=== PATIENT | male | born 1935 | race Caucasian/White ===

== ENCOUNTER 2017-06-19 20:04 | Inpatient (IN) | payer MEDICARE, BC ==
[2017-06-19] MEDS ORDERED: Diphth/Teta/Acell Pertusis* 0.5 ML VIAL ** FOR 6 WKS TO 7 YRS OLD IM ONE (20:46)
[2017-06-19] MEDS ORDERED: levETIRAcetam IV* 1,000 MG in NS 0.9% 100 ML* 100 ML IVPB ONE (21:00)
--- NOTE | 2017-06-19 21:02 | RAD ---
Indication: Syncope; fell and hit floor. Anticoagulated. Comparison: No relevant prior exams available on the [facility] PACS for comparison. Technique: Noncontrast CT vertex of skull through foramen magnum. Report: Small volume of acute hyperdense subarachnoid hemorrhage at the LEFT frontal lobe. Negative for additional extra or intra-axial hemorrhage. Negative for mass effect. Moderate prominence of the cerebral sulci and proportional enlargement of the ventricles. Patent basal cisterns. Decreased density in the periventricular and subcortical white matter while non-specific is most likely due to chronic microangiopathy. Negative for hernández matter white matter obscuration. No suspicious abnormality of the orbital contents. Negative for calvarial or skull base fracture. Clear visualized paranasal sinuses and mastoid air spaces. Infiltrative LEFT frontal scalp hematoma. IMPRESSION: 1. Small volume of acute hyperdense subarachnoid hemorrhage at the LEFT frontal lobe. Negative for mass effect. No fracture evident. 2. Moderate involutional change and stigmata of chronic small vessel ischemic disease. Results discussed with Dr. Watkins 06/19/2017 8:58 PM EST
--- NOTE | 2017-06-19 21:06 | RAD ---
INDICATION: Syncopal episode with head injury. LEFT frontal subarachnoid hemorrhage. Anticoagulated. COMPARISON: CT brain of the same date. TECHNIQUE: Multidetector CT images foramen magnum to lung apices without contrast. Multiplanar reformation. REPORT: Images through the upper lung zones are remarkable for large bilateral dependent pleural effusions with proportional atelectasis. Negative for pneumothorax within the [id number]. Thickened interlobular septa consistent with interstitial edema. Normal vertebral alignment accounting for exam positioning without spondylolisthesis or subluxation at any level. Negative for cervical vertebral body or posterior element fracture. Negative for paravertebral hematoma. 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 At C2-C3 uncinate process spurring and facet joint osteoarthritis results in mild RIGHT foraminal stenosis. At C3-C4 dorsal spondylitic ridging results in mild acquired central canal stenosis and uncinate process spurring and facet joint osteoarthritis results in mild RIGHT foraminal stenosis. At C5-C6 uncinate process spurring and facet joint osteoarthritis results in mild bilateral foraminal stenosis. IMPRESSION: 1. No CT evidence for traumatic cervical spine injury. 2. Incidental large bilateral pleural effusions. Results discussed Dr. Watkins 06/19/2017 9:03 PM EST
[2017-06-19] MEDS ORDERED: Tetan/Diph/Pertus SYR(Tdap)* 0.5 ML SYR(BOOSTRIX) use SYR IM ONE ×2 (21:09→21:10)
[2017-06-19 21:30] LABS: ABS Basophils 0 10^3/ul (0-0.2); ABS Eosinophils 0 10^3/ul (0-0.6); ABS Monocytes 0.4 10^3/ul (0-0.8); ABS Neutrophils 3.2 10^3/ul (1.5-7.7); ABS Nucleated RBC 0 10^3/ul; Eosinophil % 0.6 % (0-6); Hematocrit 35 % (42-52); Hemoglobin 11.9 g/dl (14.0-18.0); Lymphocyte % 21.5 % (25-47); Mean Corpuscular HGB Conc 34 g/dl (31-36); Mean Corpuscular Hemoglobin 34 pg (27-31); Mean Corpuscular Volume 99 fL (80-94); Mean Platelet Volume 8 um3 (7.4-10.4); Nucleated Red Blood Cells % 0.1; Platelet Count 191 10^3/ul (150-450); Red Blood Count 3.53 10^6/ul (4.0-5.4); Red Cell Distribution Width 17 % (10.5-15); White Blood Count 4.7 10^3/ul (3.5-10.8)
[2017-06-19 21:45] LABS: EGFR Non-African American 34.3 (>60)
[2017-06-19 21:58] LABS: INR 4.95 (0.77-1.02)
[2017-06-19] MEDS ORDERED: Lidocaine 2% PF * 5 ML VIAL ONE (22:17)
[2017-06-19] MEDS ORDERED: Levofloxacin 750 MG IVPREMIX(* 750 MG/150 ML BAG IVPB ONE (23:19)
[2017-06-19] MEDS ORDERED: CMCS: Melatonin (NF) 3 MG TAB PO PRN (23:36)
[2017-06-19] MEDS ORDERED: Ondansetron INJ* 2 MG/ML VIAL IV PRN (23:36)
[2017-06-19] MEDS ORDERED: Acetaminophen TAB* 325 MG PO PRN (23:36)
[2017-06-19] MEDS ORDERED: NS 0.9% 1000 ML* 1,000 ML IV SCH (23:45)
--- NOTE | 2017-06-19 23:53 | HP ---
H&P (Free Text) History and Physical: PCP: STACY Blank Date/Time: 06/19/2017 2320 CC: syncope HPI: Mr Ruelas is an 81YO male HX AFIB on rivaroxaban who was at home this evening in the kitchen with his . She was not facing him and heard a 'clunk ' finding him unresponsive on the floor for which she called EMS. She relates he was entirely unresponsive for 10-15 minutes only beginning to come around upon EMS arrival. Mr Ruelas who is sharp at baseline has no recollection of the evenings events. He denies current pain, chest pain, palpitations, N/V, sweating , light-headedness, SOB, or other issues. When asked how he feels replies, "feeling fine". He denies headache and states "someone put this on my head [ motions to head dressing] but I don't know why". ED evaluation reveals a small L frontal SAH. He was given 3000 units K-Centra & loaded with 1g levetiracetam for seizure prophylaxis in ED as well as having a scalp laceration sutured & dressed. Jennifer Carlin MD neurosurgery was consulted by Carlos Watkins MD ED and agreed to evaluate in AM. PMedHx AFIB on rivaroxaban syncope after which he had a pacer placed ~4 years ago HTN HLD Medications Patient/ uncertain as to meds/dosages, will need reconciling via PCP/Rx in AM. 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; full code status FamHx: Mother: passed in her 90s of CAD; Father: passed in his 70s of CAD ROS: as above, otherwise reviewed and all were negative vitals: Vital Signs Temp 36.9 C 06/20/17 00:13 Pulse 61 06/20/17 00:13 Resp 16 06/20/17 00:13 BP 131/58 06/20/17 00:13 Pulse Ox 97 06/20/17 00:13 Intake & Output 06/19/17 06/19/17 06/20/17 11:59 23:59 11:59 Intake Total 110 Balance 110 Weight 61.689 kg Intake: IV Fluids 110 Constitutional: NAD, normally developed, well-nourished elderly white male HEENM: atraumatic; sclera/conjunctiva: anicteric/clear; hearing: clinically mildly decreased; oropharynx: clear, mucosa dry Neck: soft tissue: non-tender; thyroid: normal Pulmonary: clear to auscultation bilaterally, good aeration, no accessory muscle use CV: RR/RR, normal S1S2, no carotid bruit, no jugular venous distention, 2+ B DP/ PT, trace BLE edema Abdominal: soft, non-distended, non-tender, no rebound/guarding/rigidity, normoactive bowel sounds, no hepatosplenomegaly or masses, no costovertebral angle tenderness Musculoskeletal: general: grossly intact, no tenderness with palpation, negative Jackelyn's Integumental: head dressing clean & dry Psychiatric orientation: affect: mood: eye contact: content: memory: responses: insight: Testing: Lab Results 06/19/17 06/19/17 06/19/17 Range/Units 21:17 21:17 21:17 WBC 4.7 (3.5-10.8) 10^3/ul RBC 3.53 L (4.0-5.4) 10^6/ul Hgb 11.9 L (14.0-18.0) g/dl Hct 35 L (42-52) % MCV 99 H (80-94) fL MCH 34 H (27-31) pg MCHC 34 (31-36) g/dl RDW 17 H (10.5-15) % Plt Count 191 (150-450) 10^3/ul MPV 8 (7.4-10.4) um3 Neut % (Auto) 68.6 (38-83) % Lymph % (Auto) 21.5 L (25-47) % [place] % (Auto) 8.6 (1-9) % Eos % (Auto) 0.6 (0-6) % Baso % (Auto) 0.7 (0-2) % Absolute Neuts (auto) 3.2 (1.5-7.7) 10^3/ul Absolute Lymphs (auto) 1.0 (1.0-4.8) 10^3/ul Absolute Monos (auto) 0.4 (0-0.8) 10^3/ul Absolute Eos (auto) 0 (0-0.6) 10^3/ul Absolute Basos (auto) 0 (0-0.2) 10^3/ul Absolute Nucleated RBC 0 10^3/ul Nucleated RBC % 0.1 INR (Anticoag Therapy) 4.95 H (0.77-1.02) APTT 44.5 H (26.0-36.3) seconds Sodium 126 L (133-145) mmol/L Potassium 5.1 H (3.5-5.0) mmol/L Chloride 91 L (101-111) mmol/L Carbon Dioxide 27 (22-32) mmol/L Anion Gap 8 (2-11) mmol/L BUN 44 H (6-24) mg/dL Creatinine 1.89 H (0.67-1.17) mg/dL Est GFR ( Amer) 44.1 (>60) Est GFR (Non-Af Amer) 34.3 (>60) BUN/Creatinine Ratio 23.3 H (8-20) Glucose 106 H (70-100) mg/dL Calcium 9.6 (8.6-10.3) mg/dL Magnesium 2.1 (1.9-2.7) mg/dL Total Bilirubin 1.60 H (0.2-1.0) mg/dL AST 31 (13-39) U/L ALT 14 (7-52) U/L Alkaline Phosphatase 89 (34-104) U/L Troponin I 0.03 (<0.04) ng/mL Total Protein 7.0 (6.4-8.9) g/dL Albumin 3.8 (3.2-5.2) g/dL Globulin 3.2 (2-4) g/dL Albumin/Globulin Ratio 1.2 (1-3) TSH 3.21 (0.34-5.60) mcIU/mL ECG, personally reviewed: ventricularly paced AFLUT rate 68 CXR, personally reviewed: central pulmonary vascular congestion CT brain WO, personally reviewed: IMPRESSION: 1. Small volume of acute hyperdense subarachnoid hemorrhage at the LEFT frontal lobe. Negative for mass effect. No fracture evident. 2. Moderate involutional change and stigmata of chronic small vessel ischemic disease. CT C-spine WO, personally reviewed: IMPRESSION: 1. No CT evidence for traumatic cervical spine injury. 2. Incidental large bilateral pleural effusions. Impression: 81M HX DIAGNOSIS & PLAN Primary traumatic SAH on rivaroxaban for AFIB : given 3000 units K-Centra in ED : given 1g levetiracetam in ED : Jennifer Carlin MD neurosurgery consulted by ED, will evaluate in AM : supplemental oxygen : Q1H neurochecks x4 then Q2H : PT/OT evaluations : bedside swallowing evaluation : supportive care syncope : check d-dimer although, if PE would not be able to anticoagulate, though may consider IVC filter in AM : telemetry : arrange pacer interrogation : check ECHO in AM scalp laceration : sutured & dressed in ED Secondary AFIB : hold rivaroxaban : review rate control medications once reconciled HTN : review meds once reconciled HLD : review meds once reconciled Admission Rational: inpatient for tramatic SAH in critical patient requiring ICU monitoring; inappropriate for outpatient setting DVTp: SCDs, no anti-coagulation given SAH Code Status: full HCP:
--- NOTE | 2017-06-20 00:49 | ED ---
Griffin Ko Gabriel, scribed for Carlos Watkins MD on 06/19/17 at 2040 . Adult Trauma - HPI Summary HPI Summary: This patient is a 81 year old M [facility] accompanied by his s/p fall that occurred [employer] PERSON. His states patient had an unwitnessed fall with a LOC that lasted for several minutes. His baseline is alert and oriented and he is able to drive, states he is not at baseline currently. He takes his blood thinner around 0830 every day and had a pacer. - History of Current Complaint Chief Complaint: EDSyncope Stated Complaint: FALL/HEAD INJURY Time Seen by Provider: 06/19/17 20:28 Hx Obtained From: Patient, Family/Real Estate Intern Mechanism of Injury: Fall Loss of Consciousness: prolonged (minutes) Onset/Duration: Traumatic, Still Present - still confused, Resolved Onset Severity: Severe Current Severity: Mild Pain Intensity: 0 Pain Scale Used: 0-10 Numeric Location: Head Associated Signs & Symptoms: Positive: Other: - LOC, syncope, and multiple lacerations - Allergy/Home Medications Allergies/Adverse Reactions: Allergies Allergy/AdvReac Type Severity Reaction Status Date / Time Penicillins Allergy Rash Verified 06/19/17 21:00 PMH/Surg Hx/FS Hx/Imm Hx Endocrine/Hematology History: Reports: Hx Anticoagulant Therapy Cardiovascular History: Reports: Hx Atrial Fibrillation, Hx Pacemaker/ICD - Surgical History Surgery Procedure, Year, and Place: pacemaker Infectious Disease History: No Infectious Disease History: Denies: Traveled Outside the [place] in Last 30 Days - Family History Known Family History: Negative: Seizure Disorder - Social History Lives: With Family Alcohol Use: None Substance Use Type: Reports: None Smoking Status (MU): Never Smoked Tobacco Review of Systems Positive: Other - head trauma Positive: Other - laceration on forehead and arm Neurological: Other - LOC/ syncope All Other Systems Reviewed And Are Negative: Yes Physical Exam - Summary Physical Exam Summary: VITAL SIGNS: Reviewed. GENERAL: Patient is a well-developed and nourished male who is lying comfortable in the stretcher. Patient is not in any acute respiratory distress. HEAD AND FACE: there is a 1inch laceration on the left anterior forehead with minimal bleeding EYES: PERRLA, EOMI x 2, No injected conjunctiva, no nystagmus. EARS: Hearing grossly intact. Ear canals and tympanic membranes are within normal limits. MOUTH: Oropharynx within normal limits. NECK: Supple, trachea is midline, no adenopathy, no JVD, no carotid bruit, no c- spine tenderness, neck with full ROM. CHEST: Symmetric, no tenderness at palpation LUNGS: Clear to auscultation bilaterally. No wheezing or crackles. CVS: Regular rate and rhythm, S1 and S2 present, no murmurs or gallops appreciated. ABDOMEN: Soft, non-tender. No signs of distention. No rebound no guarding, and no masses palpated. Bowel sounds are normal. EXTREMITIES: FROM in all major joints, no edema, no cyanosis or clubbing. NEURO: Alert and oriented x 3. No acute neurological deficits. Speech is normal and follows commands. SKIN: Dry and warm Patient was put in a C-collar immediately after the exam Triage Information Reviewed: Yes Vital Signs On Initial Exam: Initial Vitals Temp Pulse Resp BP Pulse Ox 97.8 F 70 16 143/49 97 06/19/17 20:23 06/19/17 20:23 06/19/17 20:23 06/19/17 20:23 06/19/17 20:23 Vital Signs Reviewed: Yes - [place] Coma Scale Coma Scale Total: 15 Procedures - Laceration/Wound Repair 1 Location: head Description: Irregular Anesthesia: 2.0%, [place] Length, Depth and Shape: 1 inch Betadine Prep?: Yes Irrigated w/ Saline (ccs): 100 Laceration/Wound Explored: no foreign body removed Suture Type: Nylon Number of Sutures: 4 Layer Closure?: No Sterile Dressing Applied?: Yes Diagnostics - Vital Signs Vital Signs Temp Pulse Resp BP Pulse Ox 06/19/17 20:23 97.8 F 70 16 143/49 97 - Laboratory Result Diagrams: 06/19/17 21:17 06/19/17 21:17 Lab Statement: Any lab studies that have been ordered have been reviewed, and results considered in the medical decision making process. - Radiology CXR Radiology Interpretation Completed By: ED Physician - bilateral lower lobe infiltrates. - CT CT Brain CT Interpretation Completed By: Radiologist - 1. Small volume of acute hyperdense subarachnoid hemorrhage at the LEFT frontal lobe. Negative for mass effect. No fracture evident. 2. Moderate involutional change and stigmata of chronic small vessel ischemic disease. ED physician has reviewed this radiology report. CT C-spine CT Interpretation Completed By: Radiologist - 1. No CT evidence for traumatic cervical spine injury. 2. Incidental large bilateral pleural effusions. ED physician has reviewed this radiology report. - EKG 21:04 Cardiac Rate: Other Rate EKG Rhythm: Atrial Fibrillation - at 68 BPM EKG Interpretation: afib underlying paced rhythm Adult Trauma Course/Dx - Course Assessment/Plan: This patient is a 81 year old M BIB[facility] to [facility] accompanied by his s/p fall that occurred [employer] PERSON. His states patient had an unwitnessed fall with a LOC that lasted for several minutes. Pacer. His baseline is alert and oriented and he is able to drive, states he is not at baseline currently. He takes his blood thinner around [address] brain reveals, per radiologist, 1. Small volume of acute hyperdense subarachnoid hemorrhage at the LEFT frontal lobe. Negative for mass effect. No fracture evident. 2. Moderate involutional change and stigmata of chronic small vessel ischemic disease. CT C-spine reveals, per radiologist, 1. No CT evidence for traumatic cervical spine injury. 2. Incidental large bilateral pleural effusions. CXR reveals bilateral lower lobe infiltrates. An EKG reveals afib underlying paced rhythm 68 bpm. Patient will be admitted to ICU and follow up with the hospitalist. The patient is agreeable with this plan. - Diagnoses Provider Diagnoses: PNA (pneumonia), Syncope, Subarachnoid hemorrhage - Physician Notifications Discussed Care Of Patient With: Dominic Carlin Time Discussed With Above Provider: 21:00 Instructed by Provider To: Other - DR. Oviedo suggests the patient be admitted to ICU. - Critical Care Time Critical Care Time: 30-74 min Discharge - Discharge Plan Condition: Fair Disposition: ADMITTED TO [facility] Consult Consult: 2144 We discussed patient care with and he has agreed to admit the patient. The documentation as recorded by the Griffin elmore Gabriel accurately reflects the service I personally performed and the decisions made by , Carlos Watkins MD.
[2017-06-20] MEDS: NS 0.9% 1000 ML* 1,000 ML IV SCH ×2 (01:35→10:44)
[2017-06-20 01:52] LABS: Urine Appearance Clear; Urine Blood Negative (Negative); Urine Color Amber; Urine Ketones Negative (Negative); Urine Protein Negative (Negative); Urine Specific Gravity 1.015 (1.010-1.030); Urine Urobilinogen Negative (Negative)
[2017-06-20 06:23] LABS: Hematocrit 27 % (42-52); Hemoglobin 9.5 g/dl (14.0-18.0); Mean Corpuscular HGB Conc 35 g/dl (31-36); Mean Corpuscular Hemoglobin 35 pg (27-31); Mean Corpuscular Volume 99 fL (80-94); Mean Platelet Volume 8 um3 (7.4-10.4); Platelet Count 145 10^3/ul (150-450); Red Blood Count 2.74 10^6/ul (4.0-5.4); Red Cell Distribution Width 17 % (10.5-15); White Blood Count 4.1 10^3/ul (3.5-10.8)
[2017-06-20 06:51] LABS: EGFR Non-African American 47.7 (>60)
--- NOTE | 2017-06-20 07:19 | RAD ---
INDICATION: Syncope. COMPARISON: There are no prior studies available for comparison. TECHNIQUE: A portable view of the chest was obtained. FINDINGS: The heart is moderately enlarged. There is a multilead transvenous pacemaker present. There is diffuse prominence of the interstitial markings and small bilateral pleural effusions most consistent with congestive heart failure. IMPRESSION: FINDINGS MOST CONSISTENT WITH CONGESTIVE HEART FAILURE.
--- NOTE | 2017-06-20 08:36 | CONSULT ---
Consult Consult: Neurosurgery Consult Date of Admission: 06/19/17 Date of Consult: 06/20/17 Reason for Consult: Traumatic subarachnoid hemorrhage Referring Provider: Dr. Watkins HPI: This is an 81 year old male with past medical history significant for atrial fibrillation, syncope, pacemaker placement, HTN and HLD who presented to the [facility] [place] after a fall. Patient takes Xarelto. The patient does not recall the fall or how he was feeling prior to falling. Per previous reports, the fall was unwitnessed and the patient's reports several minutes of unconsciousness after the fall. Currently, the patient denies headache, blurred vision, dizziness, lightheadedness, chest pain, neck pain, difficulty breathing, shortness of breath, abdominal pain, nausea, pain in the lower extremities. He has a history of pacemaker placement approximately 4 years ago which he reports was at [facility] although he is unable to recall the evp's name. Past Medical History: 1. Atrial fibrillation, on Xarelto 2. Syncope 3. HTN 4. HLD Past Surgical History: 1. Pacemaker placement, [facility] 2. Bilateral cataract extractions 3. Right great toe surgery Home Medications: 1. Aspirin Adult Low Dose 81 mg PO 06/20/17 [History] 2. Atorvastatin Calcium-Coenzyme 40 mg PO DAILY 06/20/17 [History Confirmed 10/02] 3. D3 2000 2,000 mg PO 06/20/17 [History] 4. Lisinopril 20 mg PO DAILY 06/20/17 [History Confirmed 06/20/17] 5. Magnesium Oxide 800 mg PO 06/20/17 [History] 6. Metoprolol Succinate 25 mg PO DAILY 06/20/17 [History Confirmed 06/20/17] 7. Ranexa 500 mg PO BID 06/20/17 [History Confirmed 06/20/17] 8. Vitamin B Complex PO 06/20/17 [History] 9. Xarelto 20 mg 20 mg PO QAM 06/20/17 [History Confirmed 06/20/17] Allergies: 1. Penicillins Social History: This patient is a nonsmoker and consumes 1-2 drinks daily. He lives at home in [place] with his . Physical Exam: Vital Signs: Temp Pulse Resp BP Pulse Ox 97.5 F 63 17 145/48 98 06/20/17 08:00 06/20/17 08:01 06/20/17 08:01 06/20/17 08:00 06/20/17 08:01 General: Thin, elderly male who is alert and laying comfortably in bed. No distress. HEENT: Head with dressing intact, wound to left frontal head. PERRL, EOMI, sclerae anicteric. Gross hearing intact but slightly decreased. Dry mucus membranes. Neck: Neck is supple and symmetric without obvious deformity. Neck is nontender to palpation anteriorly and posteriorly. CV: Radial pulses 2+. Pedal pulses difficult to palpate. Lungs: Breathing is nonlabored and lungs are clear. Abdomen: Abdomen is flat. Nontender, nondistended. Normoactive bowel sounds. Neuro: Alert and oriented to person, 2019, [facility] and birthdate. CN II- XII intact. Tongue protrudes midline and smile symmetric. Speech is slightly slurred although unable to determine baseline. Answers questions appropriately although unable to provide detailed responses. Motor normal in upper and lower extremities. Sensation intact. Finger to nose coordination intact but slow. No pronator drift. Extremities: Full ROM. Imagin. CT brain on 06/19/17 shows small left frontal lobe subarachnoid hemorrhage. Assessment: Stable, neurologically intact. Plan: 1. Repeat CT brain this morning. 2. Continue neuro checks.
--- NOTE | 2017-06-20 08:46 | PN ---
Subjective Date of Service: 06/20/17 Interval History: In AM thinks he was in [facility] but otherwise oriented to person and situation. thought 1917. following commands, MASSEY, no neuro deficits. CT head with stable SDH, new small intraparenchymal. PT/PTT still elevatated and discussed with Dr. Carlin by phone. Ordered additional kcentra but pharmacy says not indicated for a redose. Vit K given. On re-eval around 645 pt though he was home, again no neuro deficits. Objective Active Medications: Acetaminophen (Tylenol Tab*) 650 mg PO Q6H PRN PRN Reason: FEVER/PAIN Docusate Sodium (Colace Cap*) 200 mg PO BID [facility] Sodium Chloride (Ns 0.9% 1000 Ml*) 1,000 mls @ 100 mls/hr IV PER RATE [facility] Last Admin: 06/20/17 01:35 Dose: 100 mls/hr Melatonin (Melatonin (Nf)) 3 mg PO BEDTIME PRN; Protocol PRN Reason: Sleep Omeprazole (Prilosec Cap*) 20 mg PO DAILY@0600 [facility] Ondansetron HCl (Zofran Inj*) 4 mg IV Q6H PRN PRN Reason: NAUSEA Vital Signs - 8 hr 06/20/17 06/20/17 06/20/17 00:54 01:03 01:11 Temperature 98.5 F Pulse Rate 64 65 60 Respiratory 11 10 15 Rate Blood Pressure 132/58 132/58 (mmHg) O2 Sat by Pulse 96 91 94 Oximetry 06/20/17 06/20/17 06/20/17 01:16 01:30 01:45 Temperature Pulse Rate 60 65 63 Respiratory 15 13 14 Rate Blood Pressure 134/60 127/64 133/64 (mmHg) O2 Sat by Pulse 94 96 94 Oximetry 06/20/17 06/20/17 06/20/17 02:00 02:01 02:15 Temperature Pulse Rate 65 62 63 Respiratory 11 12 11 Rate Blood Pressure 138/60 145/55 (mmHg) O2 Sat by Pulse 90 89 100 Oximetry 06/20/17 06/20/17 06/20/17 02:31 02:46 03:00 Temperature Pulse Rate 65 63 67 Respiratory 13 15 13 Rate Blood Pressure 141/50 132/61 130/53 (mmHg) O2 Sat by Pulse 100 100 Oximetry 06/20/17 06/20/17 06/20/17 03:01 03:16 03:30 Temperature Pulse Rate 62 64 64 Respiratory 13 16 28 Rate Blood Pressure 107/82 119/65 (mmHg) O2 Sat by Pulse 95 100 100 Oximetry 06/20/17 06/20/17 06/20/17 03:33 03:45 04:00 Temperature 98.9 F Pulse Rate 66 64 Respiratory 14 13 Rate Blood Pressure 143/62 136/61 (mmHg) O2 Sat by Pulse 100 100 Oximetry 06/20/17 06/20/17 06/20/17 04:15 04:31 04:45 Temperature Pulse Rate 68 70 67 Respiratory 13 13 16 Rate Blood Pressure 145/68 131/65 136/65 (mmHg) O2 Sat by Pulse 95 96 97 Oximetry 06/20/17 06/20/17 06/20/17 05:00 05:01 05:15 Temperature Pulse Rate 64 63 66 Respiratory 13 20 30 Rate Blood Pressure 131/47 149/66 (mmHg) O2 Sat by Pulse 95 93 99 Oximetry 06/20/17 06/20/17 06/20/17 05:32 05:45 06:00 Temperature Pulse Rate 61 65 Respiratory 17 20 25 Rate Blood Pressure 122/50 132/57 136/59 (mmHg) O2 Sat by Pulse 97 100 Oximetry 06/20/17 06/20/17 06/20/17 06:01 06:08 06:15 Temperature Pulse Rate 64 62 Respiratory 25 20 19 Rate Blood Pressure 134/56 (mmHg) O2 Sat by Pulse 100 100 Oximetry 06/20/17 06/20/17 06/20/17 06:30 06:45 07:00 Temperature Pulse Rate 65 63 63 Respiratory 32 23 14 Rate Blood Pressure 143/54 147/54 143/51 (mmHg) O2 Sat by Pulse 100 100 99 Oximetry 06/20/17 06/20/17 06/20/17 07:01 07:15 07:30 Temperature Pulse Rate 66 74 71 Respiratory 27 18 15 Rate Blood Pressure 146/60 148/58 (mmHg) O2 Sat by Pulse 100 95 100 Oximetry 06/20/17 06/20/17 06/20/17 07:45 08:00 08:01 Temperature 97.5 F Pulse Rate 61 66 63 Respiratory 17 15 17 Rate Blood Pressure 156/59 145/48 (mmHg) O2 Sat by Pulse 100 96 98 Oximetry Oxygen Devices in Use Now: None Appearance: NAD, pleasant. bleeding through head lac dressings every couple hours. Ears/Nose/Mouth/Throat: NL Teeth, Lips, Gums, Mucous Membranes Moist Neck: NL Appearance and Movements; NL JVP, Trachea Midline Respiratory: Symmetrical Chest Expansion and Respiratory Effort, Clear to Auscultation Cardiovascular: NL Sounds; No Murmurs; No JVD, RRR Abdominal: NL Sounds; No Tenderness; No Distention, No Hepatosplenomegaly Extremities: No Edema, No Clubbing, Cyanosis Skin: No Rash or Ulcers, No Nodules or Sclerosis Neurological: - - MASSEY, strength 5/5, CN II-XII intact. Oriented to name but often confused about place. Result Diagrams: 06/20/17 06:00 06/20/17 06:00 Additional Lab and Data: Laboratory Tests 06/19/17 06/19/17 06/19/17 21:17 21:17 21:17 WBC 4.7 RBC 3.53 L Hgb 11.9 L Hct 35 L MCV 99 H MCH 34 H MCHC 34 RDW 17 H Plt Count 191 MPV 8 Neut % (Auto) 68.6 Lymph % (Auto) 21.5 L Swisher % (Auto) 8.6 Eos % (Auto) 0.6 Baso % (Auto) 0.7 Absolute Neuts (auto) 3.2 Absolute Lymphs (auto) 1.0 Absolute Monos (auto) 0.4 Absolute Eos (auto) 0 Absolute Basos (auto) 0 Absolute Nucleated RBC 0 Nucleated RBC % 0.1 INR (Anticoag Therapy) 4.95 H APTT 44.5 H D-Dimer, Quantitative 881 H Sodium 126 L Potassium 5.1 H Chloride 91 L Carbon Dioxide 27 Anion Gap 8 BUN 44 H Creatinine 1.89 H Est GFR ( Amer) 44.1 Est GFR (Non-Af Amer) 34.3 BUN/Creatinine Ratio 23.3 H Glucose 106 H Calcium 9.6 Magnesium 2.1 Total Bilirubin 1.60 H AST 31 ALT 14 Alkaline Phosphatase 89 Troponin I 0.03 Total Protein 7.0 Albumin 3.8 Globulin 3.2 Albumin/Globulin Ratio 1.2 TSH 3.21 Urine Color Urine Appearance Urine pH Ur Specific Hilliard Urine Protein Urine Ketones Urine Blood Urine Nitrate Urine Bilirubin Urine Urobilinogen Ur Leukocyte Esterase Urine Glucose 06/20/17 06/20/1718 01:05 01:40 06:00 WBC RBC Hgb Hct MCV MCH MCHC RDW Plt Count MPV Neut % (Auto) Lymph % (Auto) Swisher % (Auto) Eos % (Auto) Baso % (Auto) Absolute Neuts (auto) Absolute Lymphs (auto) Absolute Monos (auto) Absolute Eos (auto) Absolute Basos (auto) Absolute Nucleated RBC Nucleated RBC % INR (Anticoag Therapy) APTT D-Dimer, Quantitative Sodium 129 L Potassium 3.8 Chloride 100 L Carbon Dioxide 21 L Anion Gap 8 BUN 37 H Creatinine 1.42 H Est GFR ( Amer) 61.4 Est GFR (Non-Af Amer) 47.7 BUN/Creatinine Ratio 26.1 H Glucose 77 Calcium 7.5 L Magnesium Total Bilirubin AST ALT Alkaline Phosphatase Troponin I 0.03 0.03 Total Protein Albumin Globulin Albumin/Globulin Ratio TSH Urine Color Meagan Urine Appearance Clear Urine pH 6.0 Ur Specific Hilliard 1.015 Urine Protein Negative Urine Ketones Negative Urine Blood Negative Urine Nitrate Negative Urine Bilirubin Negative Urine Urobilinogen Negative Ur Leukocyte Esterase Negative Urine Glucose Negative 06/20/17 06/20/17 06:00 15:00 WBC 4.1 RBC 2.74 L Hgb 9.5 L Hct 27 L MCV 99 H MCH 35 H MCHC 35 RDW 17 H Plt Count 145 L MPV 8 Neut % (Auto) Lymph % (Auto) Swisher % (Auto) Eos % (Auto) Baso % (Auto) Absolute Neuts (auto) Absolute Lymphs (auto) Absolute Monos (auto) Absolute Eos (auto) Absolute Basos (auto) Absolute Nucleated RBC Nucleated RBC % INR (Anticoag Therapy) 2.87 H APTT 40.4 H D-Dimer, Quantitative Sodium Potassium Chloride Carbon Dioxide Anion Gap BUN Creatinine Est GFR ( Amer) Est GFR (Non-Af Amer) BUN/Creatinine Ratio Glucose Calcium Magnesium Total Bilirubin AST ALT Alkaline Phosphatase Troponin I Total Protein Albumin Globulin Albumin/Globulin Ratio TSH Urine Color Urine Appearance Urine pH Ur Specific Hilliard Urine Protein Urine Ketones Urine Blood Urine Nitrate Urine Bilirubin Urine Urobilinogen Ur Leukocyte Esterase Urine Glucose Microbiology and Other Data: Microbiology 06/20/17 01:03 Nasal Screen MRSA (PCR)(EMILY) - Final Nasal Mrsa Negative Assess/Plan/Problems-Billing Assessment: 81 year old male PMH HTN, HLD, Afib on Xarelto, recent decline (lost 10lbs and reduced ability to do ADLs) p.w with syncope. CTH with small subdural. s/p kaycentra (initial INR 4.95). No neuro deficits but some disorientation. Repeat CTH with small intraparenchymal bleed. #SDH, intraparenchymal hemorrhage - s/p kcentra. Per pharmacy, packet insert does not recommend redosing. - continue neuro checks q2 in ICU - f/u neurosurgery recs - will give vitamin K to help with other clotting factors - hold xarelto or other anticoagulants - continue keppra ppx. #Syncope in setting of recent declining deconditioning - - troponins flat at 0.03, 0.03, 0.03. ECHO with EF 30-35%, septal wall motion abnormalities. e/o of severe pHTN Try to obtain prior records and if new deficit get cardiology consult. - duplex doppler w/o e/o DVT. DDimer was elevated. Would not be able to anticoagulate if did have a PE though not hypoxic - continue telemetry - try to interogate pacer. - likely hx of CAD/angina as is on ranexa as home med and CHF as is on lasix 20mg daily. hold for now. #HTN - home lisinopril and metoprolol were not given on admission and patient currently normotensive, will add back metoprolol today #HLD - add atorvastatin 40mg back. CODE: Full Status and Disposition: medicine inpatient, in ICU Attending: Rafiq Parnell
--- NOTE | 2017-06-20 09:05 | RAD ---
INDICATION: Syncope, elevated d-dimer. COMPARISON: There are no prior studies available for comparison. TECHNIQUE: Multiple real-time, color flow and Doppler tracings of both lower extremities were obtained. FINDINGS: The common femoral, femoral, profunda femoral and popliteal veins all demonstrate normal compressibility, augmentation with compression and phasic response with respiration. The posterior tibial and peroneal veins demonstrate normal compressibility and augmentation with compression. There is a small cyst in the left popliteal fossa measuring 2.5 x 0.8 x 1.2 cm. IMPRESSION: 1. NO EVIDENCE FOR DEEP VENOUS THROMBOSIS. 2. LEFT POPLITEAL FOSSA CYST.
[2017-06-20] MEDS: Docusate CAP* 100 MG PO SCH ×2 (10:40→22:35)
[2017-06-20] MEDS: Omeprazole CAP* 20 MG PO SCH (10:40)
--- NOTE | 2017-06-20 10:50 | ECHO ---
Patient: KAMRAN DOUGHERTY [facility] Rec#: [id number] : 1935 Date: 06/20/2017 Age: 81y Height: 167.64 cm / 66.0 in Weight: 61.69 kg / 136.0 lbs Sex: M BSA: 1.7 Room#: [facility] Admit Date#: 06/19/2017 Type: Inpatient Referring: Young Hendricks MD Reading: Koby Hector MD Double Reamer Operator: Lilliam Stephenson RDCS CC: STACY Giordano Transthoracic Echocardiogram Indication: Syncope BP: 136/59 HR: 65 Rhythm: Paced Findings History: A-fib, s/p pacer, HTN, HLD. Technical Comments: The study quality is fair. The study is technically limited due to poor acoustic windows. Completed at 0940. Left Ventricle: The left ventricular chamber size is normal. There is no left ventricular hypertrophy. There is a focal wall motion abnormality present.Severe upper septal hypokinesis to akinesis is seen.Moderate global hypokinesis elsewhere. There is moderately decreased left ventricular systolic function. The estimated ejection fraction is 35-40%. There is abnormal ventricular septal wall motion consistent with right ventricular pacemaker. There is no consistent Doppler evidence of clinically significant diastolic dysfunction. Left Atrium: The left atrium is moderately dilated. Right Ventricle: Moderator Band present. The right ventricular cavity size is normal. The right ventricular global systolic function is low normal. A pacemaker wire is visualized in the right ventricle. Right Atrium: The right atrium is moderately dilated. A pacemaker wire is visualized in the right atrium. Aortic Valve: The aortic valve structure is not well visualized. Moderate aortic leaflet calcification is visualized. Systolic excursion of the aortic valve cusps is reduced. There is moderate aortic regurgitation. There is moderate to severe aortic stenosis. Mitral Valve: There is mitral annular calcification. The mitral valve leaflets are moderately thickened. There is moderate mitral regurgitation. There is no evidence of mitral stenosis. Tricuspid Valve: The tricuspid valve leaflets are mildly thickened. There is moderate to severe tricuspid regurgitation. The right ventricular systolic pressure is estimated at 72 mmHg. There is evidence of severe pulmonary hypertension. There is no tricuspid stenosis. Pulmonic Valve: The pulmonic valve structure is not well visualized. There is no pulmonic stenosis. Pericardium: There is no significant pericardial effusion. A left pleural effusion is present.The pleural effusion is large in size. Aorta: There is no dilatation of the ascending aorta. The aortic arch is not well visualized. The aortic root is normal in size. Pulmonary Artery: The main pulmonary artery is not well visualized. Venous: The inferior vena cava appears normal in size. There is an approximate 50% respiratory change in the inferior vena cava dimension. Conclusions The study is technically limited due to poor acoustic windows. Completed at 0940. There is moderately decreased left ventricular systolic function. There is a focal wall motion abnormality present.Severe upper septal hypokinesis to akinesis is seen.Moderate global hypokinesis elsewhere. The estimated ejection fraction is 35-40%. There is abnormal ventricular septal wall motion consistent with right ventricular pacemaker. The left atrium is moderately dilated. There is moderate mitral regurgitation. There is moderate aortic regurgitation. There is moderate to severe aortic stenosis. There is moderate to severe tricuspid regurgitation. There is evidence of severe pulmonary hypertension. A left pleural effusion is present.The pleural effusion is large in size. No reports of prior studies are offered for comparison. Measurements Name Value Normal Range RVIDd (AP) 2D 3.2 cm (0.9 - 2.6) RVDdMajor (2D) 4.1 cm (2.2 - 4.4) RVAW (2D) 0.6 cm (0.2 - 0.5) RAd ISD 4CH 5.7 cm (3.4 - 4.9) RA (A4C)W 5.7 cm (2.9 - 4.6) IVSd (2D) 0.9 cm (0.6 - 1) LVPWd (2D) 0.9 cm (0.6 - 1) LVIDd (2D) 4.4 cm (3.6 - 5.4) LVIDs (2D) 3.5 cm - LV FS (2D) 20 % (25 - 45) Aortic Annulus 2 cm (1.4 - 2.6) Ao root diameter (2D) 3 cm (2.1 - 3.5) Ascending Ao 2.9 cm (2.1 - 3.4) LA dimension (AP) 2D 4.3 cm (2.3 - 3.8) LAd ISD 4CH 5.8 cm (2.9 - 5.3) LA ISD 4CH W 5.1 cm (2.5 - 4.5) Name Value Normal Range LA ESV SP 4CH (A/L) 75 ml - LA ESV SP 2CH (A/L) 104 ml - LA ESV BP (A/L) 94 ml - LA ESV BP (A/L) index 56 ml/m2 - LA ESV SP 4CH (MOD) 67 ml - LA ESV SP 2CH (MOD) 102 ml - Name Value Normal Range MV E-wave Vmax 1.01 m/sec - MV deceleration time 131.5 msec - MV A-wave Vmax 0.45 m/sec - MV E:A ratio 2.27 ratio - LV septal e' Vmax 0.04 m/sec - LV lateral e' Vmax 0.06 m/sec - LV E:e' septal ratio 25 ratio - LV E:e' lateral ratio 16.67 ratio - Name Value Normal Range AV Vmax 3.8 m/sec - AV VTI 96.6 cm - AV peak gradient 58.02 mmHg - AV mean gradient 29.96 mmHg - LVOT diameter 2 cm - LVOT Vmax 1.03 m/sec - LVOT VTI 22.72 cm - LVOT peak gradient 4.25 mmHg - LVOT mean gradient 1.83 mmHg - RIA (continuity Vmax) 0.85 cm2 - RIA (continuity VTI) 0.74 cm2 - AR PHT 345 msec - AR peak gradient 52.8 mmHg - BARRERA Vmax 0.49 m/sec - Name Value Normal Range MV Vmax 1.38 m/sec - MV VTI 26.72 cm - MV peak gradient 7.71 mmHg - MV mean gradient 2.43 mmHg - MV PHT 65 msec - MVA (PHT) 3.4 cm2 - MVA (continuity VTI) 2.7 cm2 - Name Value Normal Range TR Vmax 4 m/sec - TR peak gradient 64 mmHg - RAP 8 mmHg - RVSP 72 mmHg - IVC diameter 1.7 cm - Name Value Normal Range PV Vmax 0.94 m/sec - PV peak gradient 3.58 mmHg -
--- NOTE | 2017-06-20 12:35 | RAD ---
INDICATION: Traumatic subarachnoid hemorrhage. COMPARISON: Comparison is made with a prior CT of the brain from June 19, 2017. TECHNIQUE: Contiguous axial sections of the brain were obtained from the skull base to the vertex without contrast. FINDINGS: There is subarachnoid hemorrhage present in the sulci around the anterior aspect of the right frontal lobe which appears similar to the prior exam. There is a new small round area of intraparenchymal hemorrhage which appears to be in the cortex and subcortical white matter of the right frontal lobe measuring 1.3 x 1.1 cm in size. There is also a small area of hemorrhage in between the posterior aspect of the lateral ventricles which has increased in size. There is also hemorrhage layering in the ventricular atria. There is a small area of hemorrhage in the region of the quadrigeminal plate cistern which appears new. No mass effect is seen. The ventricle cisterns and sulci are prominent and unchanged from the prior exam most consistent with involutional changes. No significant focal osseous abnormality is seen. The visualized portion of the paranasal sinuses and mastoid air cells appear clear. The results of this examination were discussed with Dr. Felipe. IMPRESSION: 1. SUBARACHNOID HEMORRHAGE ADJACENT TO THE LEFT FRONTAL LOBE, UNCHANGED. 2. NEW SMALL INTRAPARENCHYMAL AREA OF HEMORRHAGE IN THE ANTERIOR LEFT FRONTAL LOBE. 3. INCREASED HEMORRHAGE ADJACENT TO THE POSTERIOR BODIES OF THE LATERAL VENTRICLES.
[2017-06-20 15:28] LABS: INR 2.87 (0.77-1.02)
[2017-06-20] MEDS ORDERED: Phytonadione Oral Solution* 5 MG/25 ML UDC PO ONE (16:20)
--- NOTE | 2017-06-20 20:28 | RAD ---
Indication: Declining cognition. Intracranial hemorrhage. Comparison: 1104 hours exam of the same date. Technique: Noncontrast CT vertex of skull through foramen magnum. Report: No significant change in hyperdense RIGHT frontal subarachnoid hemorrhage as well as 1.6 cm focus of intra-axial hemorrhage at the para midline superior LEFT frontal lobe. Unchanged small volume of hyperdense hematoma at the lateral ventricles and quadrigeminal plate cistern. No new focus of intracranial hemorrhage evident compared with the earlier exam of the same date. Negative for mass effect. Negative for ventriculomegaly aside from mild prominent secondary to involutional change. Moderately severe diffuse prominence of the cerebral sulci. Patent basal cisterns. Negative for calvarial or skull base fracture or suspicious focal osseous lesion. Minimal fluid at the LEFT sphenoid sinus. Mild soft tissue edema superficial to the LEFT eye and zygomatic arch as well as the LEFT malar eminence. IMPRESSION: No significant interval change in hyperdense extra and intra-axial hemorrhage compared with the 1104 hours exam of the same date. Negative for significant mass effect.
[2017-06-21] MEDS: Omeprazole CAP* 20 MG PO SCH (05:55)
[2017-06-21 06:16] LABS: ABS Basophils 0 10^3/ul (0-0.2); ABS Eosinophils 0 10^3/ul (0-0.6); ABS Lymphocytes 0.9 10^3/ul (1.0-4.8); ABS Monocytes 0.6 10^3/ul (0-0.8); ABS Neutrophils 3.1 10^3/ul (1.5-7.7); ABS Nucleated RBC 0 10^3/ul; Eosinophil % 0.4 % (0-6); Hematocrit 33 % (42-52); Hemoglobin 11.3 g/dl (14.0-18.0); Lymphocyte % 18.8 % (25-47); Mean Corpuscular HGB Conc 34 g/dl (31-36); Mean Corpuscular Hemoglobin 34 pg (27-31); Mean Corpuscular Volume 100 fL (80-94); Mean Platelet Volume 8 um3 (7.4-10.4); Nucleated Red Blood Cells % 0; Platelet Count 169 10^3/ul (150-450); Red Cell Distribution Width 17 % (10.5-15); White Blood Count 4.6 10^3/ul (3.5-10.8)
[2017-06-21 07:30] LABS: INR 2.4 (0.77-1.02)
--- NOTE | 2017-06-21 07:48 | PN ---
Subjective Date of Service: 06/21/17 Interval History: No c/o. Denies pain. Objective Active Medications: Acetaminophen (Tylenol Tab*) 650 mg PO Q6H PRN PRN Reason: FEVER/PAIN Docusate Sodium (Colace Cap*) 200 mg PO BID [facility] Last Admin: 06/20/17 22:35 Dose: Not Given Sodium Chloride (Ns 0.9% 1000 Ml*) 1,000 mls @ 100 mls/hr IV PER RATE [facility] Last Admin: 06/20/17 10:44 Dose: 100 mls/hr Melatonin (Melatonin (Nf)) 3 mg PO BEDTIME PRN; Protocol PRN Reason: Sleep Metoprolol Succinate (Toprol Xl Tab*) 25 mg PO DAILY [facility] Omeprazole (Prilosec Cap*) 20 mg PO DAILY@0600 [facility] Last Admin: 06/21/17 05:55 Dose: 20 mg Ondansetron HCl (Zofran Inj*) 4 mg IV Q6H PRN PRN Reason: NAUSEA Vital Signs - 8 hr 06/21/17 06/21/17 06/21/17 00:00 00:20 00:28 Temperature 98.2 F Pulse Rate Respiratory 14 19 Rate Blood Pressure 150/69 (mmHg) O2 Sat by Pulse 93 Oximetry 06/21/17 06/21/17 06/21/17 01:00 01:01 02:00 Temperature Pulse Rate 69 73 66 Respiratory 14 18 15 Rate Blood Pressure 105/57 137/63 (mmHg) O2 Sat by Pulse 94 93 91 Oximetry 06/21/17 06/21/17 06/21/17 03:00 03:01 03:39 Temperature 97.5 F Pulse Rate 78 79 Respiratory 17 19 Rate Blood Pressure 135/83 (mmHg) O2 Sat by Pulse 94 94 Oximetry 06/21/17 06/21/17 06/21/17 04:00 04:01 05:00 Temperature Pulse Rate 69 72 83 Respiratory 17 15 18 Rate Blood Pressure 142/98 159/66 (mmHg) O2 Sat by Pulse 89 88 71 Oximetry 06/21/17 06/21/17 06/21/17 05:01 06:00 06:01 Temperature Pulse Rate 81 75 80 Respiratory 13 16 16 Rate Blood Pressure 169/72 (mmHg) O2 Sat by Pulse 69 94 94 Oximetry Oxygen Devices in Use Now: None Appearance: Alert, partly up in ICU bed. Ears/Nose/Mouth/Throat: Clear Oropharnyx, Mucous Membranes Moist Respiratory: Symmetrical Chest Expansion and Respiratory Effort, Clear to Auscultation, Clear to Percussion, Clear to Palpation, - Cardiovascular: NL Sounds; No Murmurs; No JVD, RRR, No Edema, - Neurological: NL Sensation - Gave date January 1987. Knows his age, knew he was in a hospital. [place]. No tremor. Result Diagrams: 06/21/17 05:46 06/20/17 06:00 Additional Lab and Data: Laboratory Tests 06/19/17 06/19/17 06/19/17 21:17 21:17 21:17 WBC 4.7 RBC 3.53 L Hgb 11.9 L Hct 35 L MCV 99 H MCH 34 H MCHC 34 RDW 17 H Plt Count 191 MPV 8 Neut % (Auto) 68.6 Lymph % (Auto) 21.5 L [place] % (Auto) 8.6 Eos % (Auto) 0.6 Baso % (Auto) 0.7 Absolute Neuts (auto) 3.2 Absolute Lymphs (auto) 1.0 Absolute Monos (auto) 0.4 Absolute Eos (auto) 0 Absolute Basos (auto) 0 Absolute Nucleated RBC 0 Nucleated RBC % 0.1 INR (Anticoag Therapy) 4.95 H APTT 44.5 H D-Dimer, Quantitative 881 H Sodium 126 L Potassium 5.1 H Chloride 91 L Carbon Dioxide 27 Anion Gap 8 BUN 44 H Creatinine 1.89 H Est GFR ( Amer) 44.1 Est GFR (Non-Af Amer) 34.3 BUN/Creatinine Ratio 23.3 H Glucose 106 H Calcium 9.6 Magnesium 2.1 Total Bilirubin 1.60 H AST 31 ALT 14 Alkaline Phosphatase 89 Troponin I 0.03 Total Protein 7.0 Albumin 3.8 Globulin 3.2 Albumin/Globulin Ratio 1.2 TSH 3.21 Urine Color Urine Appearance Urine pH Ur Specific [place] Urine Protein Urine Ketones Urine Blood Urine Nitrate Urine Bilirubin Urine Urobilinogen Ur Leukocyte Esterase Urine Glucose 06/20/17 06/20/17 06/20/17 01:05 01:40 06:00 WBC RBC Hgb Hct MCV MCH MCHC RDW Plt Count MPV Neut % (Auto) Lymph % (Auto) [place] % (Auto) Eos % (Auto) Baso % (Auto) Absolute Neuts (auto) Absolute Lymphs (auto) Absolute Monos (auto) Absolute Eos (auto) Absolute Basos (auto) Absolute Nucleated RBC Nucleated RBC % INR (Anticoag Therapy) APTT D-Dimer, Quantitative Sodium 129 L Potassium 3.8 Chloride 100 L Carbon Dioxide 21 L Anion Gap 8 BUN 37 H Creatinine 1.42 H Est GFR ( Amer) 61.4 Est GFR (Non-Af Amer) 47.7 BUN/Creatinine Ratio 26.1 H Glucose 77 Calcium 7.5 L Magnesium Total Bilirubin AST ALT Alkaline Phosphatase Troponin I 0.03 0.03 Total Protein Albumin Globulin Albumin/Globulin Ratio TSH Urine Color [place]agan Urine Appearance Clear Urine pH 6.0 Ur Specific [place] 1.015 Urine Protein Negative Urine Ketones Negative Urine Blood Negative Urine Nitrate Negative Urine Bilirubin Negative Urine Urobilinogen Negative Ur Leukocyte Esterase Negative Urine Glucose Negative 06/20/17 06/20/17 06:00 15:00 WBC 4.1 RBC 2.74 L Hgb 9.5 L Hct 27 L MCV 99 H MCH 35 H MCHC 35 RDW 17 H Plt Count 145 L MPV 8 Neut % (Auto) Lymph % (Auto) [place] % (Auto) Eos % (Auto) Baso % (Auto) Absolute Neuts (auto) Absolute Lymphs (auto) Absolute Monos (auto) Absolute Eos (auto) Absolute Basos (auto) Absolute Nucleated RBC Nucleated RBC % INR (Anticoag Therapy) 2.87 H APTT 40.4 H D-Dimer, Quantitative Sodium Potassium Chloride Carbon Dioxide Anion Gap BUN Creatinine Est GFR ( Amer) Est GFR (Non-Af Amer) BUN/Creatinine Ratio Glucose Calcium Magnesium Total Bilirubin AST ALT Alkaline Phosphatase Troponin I Total Protein Albumin Globulin Albumin/Globulin Ratio TSH Urine Color Urine Appearance Urine pH Ur Specific [place] Urine Protein Urine Ketones Urine Blood Urine Nitrate Urine Bilirubin Urine Urobilinogen Ur Leukocyte Esterase Urine Glucose Microbiology and Other Data: Microbiology 06/20/17 01:03 Nasal Screen MRSA (PCR)(EMILY) - Final Nasal Mrsa Negative Assess/Plan/Problems-Billing Assessment: 81 year old male PMH HTN, HLD, Afib on Xarelto, recent decline (lost 10lbs and reduced ability to do ADLs) p.w with syncope. CTH with small subdural. s/p kaycentra (initial INR 4.95). No neuro deficits but some disorientation. Repeat CTH with small intraparenchymal bleed. #SDH, intraparenchymal hemorrhage - s/p kcentra. Per pharmacy, packet insert does not recommend redosing. - continue neuro checks q2 in ICU - f/u neurosurgery recs - will give vitamin K to help with other clotting factors - hold xarelto or other anticoagulants - continue keppra ppx. #Syncope in setting of recent declining deconditioning - - troponins flat at 0.03, 0.03, 0.03. ECHO with EF 30-35%, septal wall motion abnormalities. e/o of severe pHTN Try to obtain prior records and if new deficit get cardiology consult. - duplex doppler w/o e/o DVT. DDimer was elevated. Would not be able to anticoagulate if did have a PE though not hypoxic - continue telemetry - try to interogate pacer. - likely hx of CAD/angina as is on ranexa as home med and CHF as is on lasix 20mg daily. hold for now. #HTN - home lisinopril and metoprolol were not given on admission and patient currently normotensive, will add back metoprolol today #HLD - add atorvastatin 40mg back. CODE: Full - Patient Problems (1) SDH (subdural hematoma) Current Visit: Yes Status: Acute Code(s): I62.00 - NONTRAUMATIC SUBDURAL HEMORRHAGE, UNSPECIFIED SNOMED Code(s): 79574820 Comment: Both intra- and extra-axial hemorrhage. Kcentra and Vit K given. INR down to 2.40 06/21/17. CT stable. Transfer to tele. (2) Atrial fibrillation Current Visit: Yes Status: Acute Code(s): I48.91 - UNSPECIFIED ATRIAL FIBRILLATION SNOMED Code(s): 80625421 Comment: My judgement is that the risks of anticoagulation would outweigh the benefits. I will discuss with the family. Continue BB. (3) Fall Current Visit: Yes Status: Acute Comment: Uncertain if syncope or mechanical fall. Pt does not recall event. Pacer interrogation no events, nl function. (4) Dementia Current Visit: Yes Status: Acute Code(s): F03.90 - UNSPECIFIED DEMENTIA WITHOUT BEHAVIORAL DISTURBANCE SNOMED Code(s): 73747990 Comment: I will discuss prognosis and management with family, possible palliative care consult. (5) CAD (coronary artery disease) Current Visit: Yes Status: Acute Code(s): I25.10 - ATHSCL HEART DISEASE OF [place] CORONARY ARTERY W/O ANG PCTRS SNOMED Code(s): 67018517 Comment: Continue statin. I will discuss ASA tx with family also. Status and Disposition: medicine inpatient, in ICU
[2017-06-21] MEDS: Metoprolol Succinate XL TAB* 25 MG PO SCH (09:19)
[2017-06-21] MEDS: Docusate CAP* 100 MG PO SCH ×2 (09:19→21:32)
--- NOTE | 2017-06-21 10:28 | PN ---
Progress Note - Progress Note Date of Service: 06/21/17 SOAP: Subjective: []Awake,alert Denies headache F/U CT yesterday showed ventricular size unchanged Objective: []Neuro intact Some word finding difficulty Assessment: []Satis course Plan: []OK with transfer to floor Will repeat CT in AM
[2017-06-22] MEDS: NS 0.9% 1000 ML* 1,000 ML IV SCH (02:18)
[2017-06-22] MEDS: Omeprazole CAP* 20 MG PO SCH (05:34)
--- NOTE | 2017-06-22 08:07 | RAD ---
INDICATION: Intracranial hemorrhage. COMPARISON: Comparison is made with a prior CT of the brain from [place] 2017. TECHNIQUE: Contiguous axial sections of the brain were obtained from the skull base to the vertex without contrast. FINDINGS: There is a small amount of subarachnoid hemorrhage present adjacent to the left frontal lobe which is unchanged. There is a focal area of intraparenchymal hemorrhage in the anterior aspect of the left frontal lobe measuring up to 1.5 x 1.4 cm in size which is unchanged. There is hemorrhage located between the posterior aspects of the lateral ventricles which is unchanged. There is hemorrhage present dependently within the atria of the lateral ventricles which is unchanged. The ventricle cisterns and sulci are prominent and unchanged from the prior exam most consistent with diffuse involutional atrophy. No focal mass effect is seen. No significant focal osseous abnormality is seen. The visualized portion of the paranasal sinuses and mastoid air cells appear clear. IMPRESSION: 1. LEFT FRONTAL LOBE SUBARACHNOID AND INTRAPARENCHYMAL HEMORRHAGE, UNCHANGED. 2. HEMORRHAGE BETWEEN THE POSTERIOR ASPECT OF THE LATERAL VENTRICLES, UNCHANGED. 3. INTRAVENTRICULAR HEMORRHAGE, UNCHANGED.
[2017-06-22 09:13] LABS: ABS Basophils 0.1 10^3/ul (0-0.2); ABS Eosinophils 0 10^3/ul (0-0.6); ABS Lymphocytes 0.9 10^3/ul (1.0-4.8); ABS Monocytes 0.5 10^3/ul (0-0.8); ABS Neutrophils 2.8 10^3/ul (1.5-7.7); ABS Nucleated RBC 0 10^3/ul; Eosinophil % 0.8 % (0-6); Hematocrit 32 % (42-52); Lymphocyte % 20.5 % (25-47); Mean Corpuscular HGB Conc 34 g/dl (31-36); Mean Corpuscular Hemoglobin 34 pg (27-31); Mean Corpuscular Volume 100 fL (80-94); Mean Platelet Volume 8 um3 (7.4-10.4); Nucleated Red Blood Cells % 0.1; Platelet Count 172 10^3/ul (150-450); Red Blood Count 3.19 10^6/ul (4.0-5.4); Red Cell Distribution Width 17 % (10.5-15); White Blood Count 4.3 10^3/ul (3.5-10.8)
[2017-06-22] MEDS: Metoprolol Succinate XL TAB* 25 MG PO SCH (09:29)
[2017-06-22] MEDS: Docusate CAP* 100 MG PO SCH ×2 (09:29→22:19)
[2017-06-22 09:33] LABS: INR 1.72 (0.77-1.02)
--- NOTE | 2017-06-22 12:09 | PN ---
Subjective Date of Service: 06/22/17 Interval History: No c/o. His states he never complains. Objective Active Medications: Acetaminophen (Tylenol Tab*) 650 mg PO Q6H PRN PRN Reason: FEVER/PAIN Docusate Sodium (Colace Cap*) 200 mg PO BID [facility] Last Admin: 06/22/17 09:29 Dose: 200 mg Melatonin (Melatonin (Nf)) 3 mg PO BEDTIME PRN; Protocol PRN Reason: Sleep Metoprolol Succinate (Toprol Xl Tab*) 25 mg PO DAILY [facility] Last Admin: 06/22/17 09:29 Dose: 25 mg Non-Formulary Medication (Ranexa) 500 mg PO BID [facility] Omeprazole (Prilosec Cap*) 20 mg PO DAILY@0600 [facility] Last Admin: 06/22/17 05:34 Dose: 20 mg Ondansetron HCl (Zofran Inj*) 4 mg IV Q6H PRN PRN Reason: NAUSEA Vital Signs - 8 hr 06/22/17 06/22/17 04:45 08:19 Temperature 97.3 F 97.3 F Pulse Rate 67 68 Respiratory 16 16 Rate Blood Pressure 141/46 148/41 (mmHg) O2 Sat by Pulse 97 99 Oximetry Oxygen Devices in Use Now: None Appearance: Alert, partly up in bed. In good spirits. Looks comfortable. Extremities: No Edema, No Clubbing, Cyanosis, - Skin: No Rash or Ulcers, No Nodules or Sclerosis, - Neurological: NL Sensation - He states he is in "[facility]". No tremor. Result Diagrams: 06/22/17 08:38 06/20/17 06:00 Additional Lab and Data: Laboratory Tests 06/19/17 06/19/17 06/19/17 21:17 21:17 21:17 WBC 4.7 RBC 3.53 L Hgb 11.9 L Hct 35 L MCV 99 H MCH 34 H MCHC 34 RDW 17 H Plt Count 191 MPV 8 Neut % (Auto) 68.6 Lymph % (Auto) 21.5 L [place] % (Auto) 8.6 Eos % (Auto) 0.6 Baso % (Auto) 0.7 Absolute Neuts (auto) 3.2 Absolute Lymphs (auto) 1.0 Absolute Monos (auto) 0.4 Absolute Eos (auto) 0 Absolute Basos (auto) 0 Absolute Nucleated RBC 0 Nucleated RBC % 0.1 INR (Anticoag Therapy) 4.95 H APTT 44.5 H D-Dimer, Quantitative 881 H Sodium 126 L Potassium 5.1 H Chloride 91 L Carbon Dioxide 27 Anion Gap 8 BUN 44 H Creatinine 1.89 H Est GFR ( Amer) 44.1 Est GFR (Non-Af Amer) 34.3 BUN/Creatinine Ratio 23.3 H Glucose 106 H Calcium 9.6 Magnesium 2.1 Total Bilirubin 1.60 H AST 31 ALT 14 Alkaline Phosphatase 89 Troponin I 0.03 Total Protein 7.0 Albumin 3.8 Globulin 3.2 Albumin/Globulin Ratio 1.2 TSH 3.21 Urine Color Urine Appearance Urine pH Ur Specific [place] Urine Protein Urine Ketones Urine Blood Urine Nitrate Urine Bilirubin Urine Urobilinogen Ur Leukocyte Esterase Urine Glucose 06/20/17 06/20/17 06/20/17 01:05 01:40 06:00 WBC RBC Hgb Hct MCV MCH MCHC RDW Plt Count MPV Neut % (Auto) Lymph % (Auto) [place] % (Auto) Eos % (Auto) Baso % (Auto) Absolute Neuts (auto) Absolute Lymphs (auto) Absolute Monos (auto) Absolute Eos (auto) Absolute Basos (auto) Absolute Nucleated RBC Nucleated RBC % INR (Anticoag Therapy) APTT D-Dimer, Quantitative Sodium 129 L Potassium 3.8 Chloride 100 L Carbon Dioxide 21 L Anion Gap 8 BUN 37 H Creatinine 1.42 H Est GFR ( Amer) 61.4 Est GFR (Non-Af Amer) 47.7 BUN/Creatinine Ratio 26.1 H Glucose 77 Calcium 7.5 L Magnesium Total Bilirubin AST ALT Alkaline Phosphatase Troponin I 0.03 0.03 Total Protein Albumin Globulin Albumin/Globulin Ratio TSH Urine Color Meagan Urine Appearance Clear Urine pH 6.0 Ur Specific [place] 1.015 Urine Protein Negative Urine Ketones Negative Urine Blood Negative Urine Nitrate Negative Urine Bilirubin Negative Urine Urobilinogen Negative Ur Leukocyte Esterase Negative Urine Glucose Negative 06/20/17 06/20/17 06:00 15:00 WBC 4.1 RBC 2.74 L Hgb 9.5 L Hct 27 L MCV 99 H MCH 35 H MCHC 35 RDW 17 H Plt Count 145 L MPV 8 Neut % (Auto) Lymph % (Auto) [place] % (Auto) Eos % (Auto) Baso % (Auto) Absolute Neuts (auto) Absolute Lymphs (auto) Absolute Monos (auto) Absolute Eos (auto) Absolute Basos (auto) Absolute Nucleated RBC Nucleated RBC % INR (Anticoag Therapy) 2.87 H APTT 40.4 H D-Dimer, Quantitative Sodium Potassium Chloride Carbon Dioxide Anion Gap BUN Creatinine Est GFR ( Amer) Est GFR (Non-Af Amer) BUN/Creatinine Ratio Glucose Calcium Magnesium Total Bilirubin AST ALT Alkaline Phosphatase Troponin I Total Protein Albumin Globulin Albumin/Globulin Ratio TSH Urine Color Urine Appearance Urine pH Ur Specific [place] Urine Protein Urine Ketones Urine Blood Urine Nitrate Urine Bilirubin Urine Urobilinogen Ur Leukocyte Esterase Urine Glucose Microbiology and Other Data: Microbiology 06/20/17 01:03 Nasal Screen MRSA (PCR)(EMILY) - Final Nasal Mrsa Negative Assess/Plan/Problems-Billing Assessment: 81 year old male PMH HTN, HLD, Afib on Xarelto, recent decline (lost 10lbs and reduced ability to do ADLs) p.w with syncope. CTH with small subdural. s/p kaycentra (initial INR 4.95). No neuro deficits but some disorientation. Repeat CTH with small intraparenchymal bleed. #SDH, intraparenchymal hemorrhage - s/p kcentra. Per pharmacy, packet insert does not recommend redosing. - continue neuro checks q2 in ICU - f/u neurosurgery recs - will give vitamin K to help with other clotting factors - hold xarelto or other anticoagulants - continue keppra ppx. #Syncope in setting of recent declining deconditioning - - troponins flat at 0.03, 0.03, 0.03. ECHO with EF 30-35%, septal wall motion abnormalities. e/o of severe pHTN Try to obtain prior records and if new deficit get cardiology consult. - duplex doppler w/o e/o DVT. DDimer was elevated. Would not be able to anticoagulate if did have a PE though not hypoxic - continue telemetry - try to interogate pacer. - likely hx of CAD/angina as is on ranexa as home med and CHF as is on lasix 20mg daily. hold for now. #HTN - home lisinopril and metoprolol were not given on admission and patient currently normotensive, will add back metoprolol today #HLD - add atorvastatin 40mg back. CODE: Full - Patient Problems (1) SDH (subdural hematoma) Current Visit: Yes Status: Acute Code(s): I62.00 - NONTRAUMATIC SUBDURAL HEMORRHAGE, UNSPECIFIED SNOMED Code(s): 09671915 Comment: Both intra- and extra-axial hemorrhage. Kcentra and Vit K given. INR down to 2.40 06/21/17. CT stable. Transfer to tele. (2) Atrial fibrillation Current Visit: Yes Status: Acute Code(s): I48.91 - UNSPECIFIED ATRIAL FIBRILLATION SNOMED Code(s): 70890228 Comment: My judgement is that the risks of anticoagulation would outweigh the benefits. I will discuss with the family. Continue BB. (3) Fall Current Visit: Yes Status: Acute Comment: Uncertain if syncope or mechanical fall. Pt does not recall event. Pacer interrogation no events, nl function. (4) Dementia Current Visit: Yes Status: Acute Code(s): F03.90 - UNSPECIFIED DEMENTIA WITHOUT BEHAVIORAL DISTURBANCE SNOMED Code(s): 80340739 Comment: Prognosis and management discussed with son 5. Palliative care consult requested. (5) CAD (coronary artery disease) Current Visit: Yes Status: Acute Code(s): I25.10 - ATHSCL HEART DISEASE OF [place] CORONARY ARTERY W/O ANG PCTRS SNOMED Code(s): 89338992 Comment: Continue statin. I will hold ASA tx due to risk of re-bleed, but re -start ranolazine. Status and Disposition: medicine inpatient, in ICU
[2017-06-22] MEDS: CMCS:Ranolazine (NF) 500 MG TAB PO SCH ×2 (13:12→22:19)
--- NOTE | 2017-06-22 14:12 | PN ---
Progress Note - Progress Note Date of Service: 06/22/17 SOAP: Subjective: []Awake,alert Denies headache F/U CT done this AM Objective: []Some word finding difficulty Motor intact F/U CT improving, no increase in ventricular size Assessment: []Stable Plan: []Stable from NS standpoint Will sign off, please call if needed
[2017-06-23] MEDS: Omeprazole CAP* 20 MG PO SCH (05:02)
[2017-06-23 08:26] LABS: ABS Basophils 0 10^3/ul (0-0.2); ABS Eosinophils 0.1 10^3/ul (0-0.6); ABS Lymphocytes 0.8 10^3/ul (1.0-4.8); ABS Monocytes 0.4 10^3/ul (0-0.8); ABS Neutrophils 2.5 10^3/ul (1.5-7.7); ABS Nucleated RBC 0 10^3/ul; Eosinophil % 1.5 % (0-6); Hematocrit 40 % (42-52); Hemoglobin 13.5 g/dl (14.0-18.0); Lymphocyte % 19.8 % (25-47); Mean Corpuscular HGB Conc 34 g/dl (31-36); Mean Corpuscular Hemoglobin 34 pg (27-31); Mean Corpuscular Volume 100 fL (80-94); Mean Platelet Volume 8 um3 (7.4-10.4); Nucleated Red Blood Cells % 0.1; Platelet Count 144 10^3/ul (150-450); Red Blood Count 4.01 10^6/ul (4.0-5.4); Red Cell Distribution Width 17 % (10.5-15); White Blood Count 3.8 10^3/ul (3.5-10.8)
[2017-06-23 08:27] LABS: INR 1.56 (0.77-1.02)
[2017-06-23] MEDS: Metoprolol Succinate XL TAB* 25 MG PO SCH (09:26)
[2017-06-23] MEDS: Docusate CAP* 100 MG PO SCH ×2 (09:26→21:03)
[2017-06-23] MEDS: CMCS:Ranolazine (NF) 500 MG TAB PO SCH ×2 (09:26→21:03)
--- NOTE | 2017-06-23 15:43 | PN ---
Subjective Date of Service: 06/23/17 Interval History: No c/o. Objective Active Medications: Acetaminophen (Tylenol Tab*) 650 mg PO Q6H PRN PRN Reason: FEVER/PAIN Docusate Sodium (Colace Cap*) 200 mg PO BID [facility] Last Admin: 06/23/17 09:26 Dose: 200 mg Melatonin (Melatonin (Nf)) 3 mg PO BEDTIME PRN; Protocol PRN Reason: Sleep Metoprolol Succinate (Toprol Xl Tab*) 25 mg PO DAILY [facility] Last Admin: 06/23/17 09:26 Dose: 25 mg Omeprazole (Prilosec Cap*) 20 mg PO DAILY@0600 [facility] Last Admin: 06/23/17 05:02 Dose: 20 mg Ondansetron HCl (Zofran Inj*) 4 mg IV Q6H PRN PRN Reason: NAUSEA Ranolazine (Ranexa (Nf)) 500 mg PO BID [facility] Last Admin: 06/23/17 09:26 Dose: 500 mg Vital Signs - 8 hr 06/23/17 06/23/17 06/23/17 07:50 07:53 11:45 Temperature 97.9 F 98.8 F Pulse Rate 63 65 Respiratory 12 16 16 Rate Blood Pressure 145/38 117/39 (mmHg) O2 Sat by Pulse 97 99 Oximetry 06/23/17 14:56 Temperature 98.8 F Pulse Rate 66 Respiratory 16 Rate Blood Pressure 119/39 (mmHg) O2 Sat by Pulse 98 Oximetry Oxygen Devices in Use Now: None Appearance: Alert, in a chair. In good spirits. Looks comfortable. Eyes: No Scleral Icterus Extremities: No Edema, No Clubbing, Cyanosis, - Skin: No Nodules or Sclerosis, - - Bandage L forehead Neurological: NL Sensation - More animated today, sociable, speaks in sentences. He did not remember the name of the facility today. Result Diagrams: 06/23/17 08:01 06/20/17 06:00 Additional Lab and Data: Laboratory Tests 06/19/17 06/19/17 06/19/17 21:17 21:17 21:17 WBC 4.7 RBC 3.53 L Hgb 11.9 L Hct 35 L MCV 99 H MCH 34 H MCHC 34 RDW 17 H Plt Count 191 MPV 8 Neut % (Auto) 68.6 Lymph % (Auto) 21.5 L [place] % (Auto) 8.6 Eos % (Auto) 0.6 Baso % (Auto) 0.7 Absolute Neuts (auto) 3.2 Absolute Lymphs (auto) 1.0 Absolute Monos (auto) 0.4 Absolute Eos (auto) 0 Absolute Basos (auto) 0 Absolute Nucleated RBC 0 Nucleated RBC % 0.1 INR (Anticoag Therapy) 4.95 H APTT 44.5 H D-Dimer, Quantitative 881 H Sodium 126 L Potassium 5.1 H Chloride 91 L Carbon Dioxide 27 Anion Gap 8 BUN 44 H Creatinine 1.89 H Est GFR ( Amer) 44.1 Est GFR (Non-Af Amer) 34.3 BUN/Creatinine Ratio 23.3 H Glucose 106 H Calcium 9.6 Magnesium 2.1 Total Bilirubin 1.60 H AST 31 ALT 14 Alkaline Phosphatase 89 Troponin I 0.03 Total Protein 7.0 Albumin 3.8 Globulin 3.2 Albumin/Globulin Ratio 1.2 TSH 3.21 Urine Color Urine Appearance Urine pH Ur Specific [place] Urine Protein Urine Ketones Urine Blood Urine Nitrate Urine Bilirubin Urine Urobilinogen Ur Leukocyte Esterase Urine Glucose 06/20/17 06/20/17 06/20/17 01:05 01:40 06:00 WBC RBC Hgb Hct MCV MCH MCHC RDW Plt Count MPV Neut % (Auto) Lymph % (Auto) [place] % (Auto) Eos % (Auto) Baso % (Auto) Absolute Neuts (auto) Absolute Lymphs (auto) Absolute Monos (auto) Absolute Eos (auto) Absolute Basos (auto) Absolute Nucleated RBC Nucleated RBC % INR (Anticoag Therapy) APTT D-Dimer, Quantitative Sodium 129 L Potassium 3.8 Chloride 100 L Carbon Dioxide 21 L Anion Gap 8 BUN 37 H Creatinine 1.42 H Est GFR ( Amer) 61.4 Est GFR (Non-Af Amer) 47.7 BUN/Creatinine Ratio 26.1 H Glucose 77 Calcium 7.5 L Magnesium Total Bilirubin AST ALT Alkaline Phosphatase Troponin I 0.03 0.03 Total Protein Albumin Globulin Albumin/Globulin Ratio TSH Urine Color [place]agan Urine Appearance Clear Urine pH 6.0 Ur Specific [place] 1.015 Urine Protein Negative Urine Ketones Negative Urine Blood Negative Urine Nitrate Negative Urine Bilirubin Negative Urine Urobilinogen Negative Ur Leukocyte Esterase Negative Urine Glucose Negative 06/20/17 06/20/17 06:00 15:00 WBC 4.1 RBC 2.74 L Hgb 9.5 L Hct 27 L MCV 99 H MCH 35 H MCHC 35 RDW 17 H Plt Count 145 L MPV 8 Neut % (Auto) Lymph % (Auto) [place] % (Auto) Eos % (Auto) Baso % (Auto) Absolute Neuts (auto) Absolute Lymphs (auto) Absolute Monos (auto) Absolute Eos (auto) Absolute Basos (auto) Absolute Nucleated RBC Nucleated RBC % INR (Anticoag Therapy) 2.87 H APTT 40.4 H D-Dimer, Quantitative Sodium Potassium Chloride Carbon Dioxide Anion Gap BUN Creatinine Est GFR ( Amer) Est GFR (Non-Af Amer) BUN/Creatinine Ratio Glucose Calcium Magnesium Total Bilirubin AST ALT Alkaline Phosphatase Troponin I Total Protein Albumin Globulin Albumin/Globulin Ratio TSH Urine Color Urine Appearance Urine pH Ur Specific [place] Urine Protein Urine Ketones Urine Blood Urine Nitrate Urine Bilirubin Urine Urobilinogen Ur Leukocyte Esterase Urine Glucose Microbiology and Other Data: Microbiology 06/20/17 01:03 Nasal Screen MRSA (PCR)(EMILY) - Final Nasal Mrsa Negative Assess/Plan/Problems-Billing Assessment: 81 year old male PMH HTN, HLD, Afib on Xarelto, recent decline (lost 10lbs and reduced ability to do ADLs) p.w with syncope. CTH with small subdural. s/p kaycentra (initial INR 4.95). No neuro deficits but some disorientation. Repeat CTH with small intraparenchymal bleed. #SDH, intraparenchymal hemorrhage - s/p kcentra. Per pharmacy, packet insert does not recommend redosing. - continue neuro checks q2 in ICU - f/u neurosurgery recs - will give vitamin K to help with other clotting factors - hold xarelto or other anticoagulants - continue keppra ppx. #Syncope in setting of recent declining deconditioning - - troponins flat at 0.03, 0.03, 0.03. ECHO with EF 30-35%, septal wall motion abnormalities. e/o of severe pHTN Try to obtain prior records and if new deficit get cardiology consult. - duplex doppler w/o e/o DVT. DDimer was elevated. Would not be able to anticoagulate if did have a PE though not hypoxic - continue telemetry - try to interogate pacer. - likely hx of CAD/angina as is on ranexa as home med and CHF as is on lasix 20mg daily. hold for now. #HTN - home lisinopril and metoprolol were not given on admission and patient currently normotensive, will add back metoprolol today #HLD - add atorvastatin 40mg back. CODE: Full - Patient Problems (1) SDH (subdural hematoma) Current Visit: Yes Status: Acute Code(s): I62.00 - NONTRAUMATIC SUBDURAL HEMORRHAGE, UNSPECIFIED SNOMED Code(s): 09423294 Comment: Both intra- and extra-axial hemorrhage. Kcentra and Vit K given. INR down to 2.40 06/21/17. CT stable. D/C tele 06/23. (2) Atrial fibrillation Current Visit: Yes Status: Acute Code(s): I48.91 - UNSPECIFIED ATRIAL FIBRILLATION SNOMED Code(s): 61712144 Comment: My judgement is that the risks of anticoagulation would outweigh the benefits. I will discuss with the family. Continue BB. (3) Fall Current Visit: Yes Status: Acute Comment: Uncertain if syncope or mechanical fall. Pt does not recall event. Pacer interrogation no events, nl function. (4) Dementia Current Visit: Yes Status: Acute Code(s): F03.90 - UNSPECIFIED DEMENTIA WITHOUT BEHAVIORAL DISTURBANCE SNOMED Code(s): 32792917 Comment: Prognosis and management discussed with son 06/21. Palliative care consult requested. Oral intake improved 06/22, 06/23. (5) CAD (coronary artery disease) Current Visit: Yes Status: Acute Code(s): I25.10 - ATHSCL HEART DISEASE OF [place] CORONARY ARTERY W/O ANG PCTRS SNOMED Code(s): 67622237 Comment: Continue statin. I will hold ASA tx due to risk of re-bleed, but re -start ranolazine. Status and Disposition: medicine inpatient, in ICU
[2017-06-24] MEDS: Omeprazole CAP* 20 MG PO SCH (06:24)
[2017-06-24] MEDS: Metoprolol Succinate XL TAB* 25 MG PO SCH (09:49)
[2017-06-24] MEDS: Docusate CAP* 100 MG PO SCH ×2 (09:49→23:09)
[2017-06-24] MEDS: CMCS:Ranolazine (NF) 500 MG TAB PO SCH ×2 (09:49→23:10)
--- NOTE | 2017-06-24 09:59 | PN ---
Subjective Date of Service: 06/24/17 Interval History: No pt c/o. Family states he took furosemide at home. Objective Active Medications: Acetaminophen (Tylenol Tab*) 650 mg PO Q6H PRN PRN Reason: FEVER/PAIN Docusate Sodium (Colace Cap*) 200 mg PO BID [facility] Last Admin: 06/24/17 09:49 Dose: 200 mg Furosemide (Lasix Tab*) 20 mg PO DAILY [facility] Metoprolol Succinate (Toprol Xl Tab*) 25 mg PO DAILY [facility] Last Admin: 06/24/17 09:49 Dose: 25 mg Omeprazole (Prilosec Cap*) 20 mg PO DAILY@0600 [facility] Last Admin: 06/24/17 06:24 Dose: 20 mg Ondansetron HCl (Zofran Inj*) 4 mg IV Q6H PRN PRN Reason: NAUSEA Ranolazine (Ranexa (Nf)) 500 mg PO BID [facility] Last Admin: 06/24/17 09:49 Dose: 500 mg Vital Signs - 8 hr 06/24/17 08:05 Temperature 97.5 F Pulse Rate 70 Respiratory 18 Rate O2 Sat by Pulse 96 Oximetry Oxygen Devices in Use Now: None Appearance: Alert, partly up in bed. Cooperative, sociable. Looks comfortable. Eyes: No Scleral Icterus Neck: - - JVD at 45 degrees. No thryomegaly, adenopathy Respiratory: Symmetrical Chest Expansion and Respiratory Effort, Clear to Auscultation, Clear to Percussion Cardiovascular: NL Sounds; No Murmurs; No JVD, RRR, No Edema, - Extremities: No Edema, No Clubbing, Cyanosis, - Skin: No Rash or Ulcers Neurological: NL Sensation - Alert, responds socially. No tremor. 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 Result Diagrams: 06/23/17 08:01 06/20/17 06:00 Additional Lab and Data: Laboratory Tests 06/19/17 06/19/17 06/19/17 21:17 21:17 21:17 WBC 4.7 RBC 3.53 L Hgb 11.9 L Hct 35 L MCV 99 H MCH 34 H MCHC 34 RDW 17 H Plt Count 191 MPV 8 Neut % (Auto) 68.6 Lymph % (Auto) 21.5 L [place] % (Auto) 8.6 Eos % (Auto) 0.6 Baso % (Auto) 0.7 Absolute Neuts (auto) 3.2 Absolute Lymphs (auto) 1.0 Absolute Monos (auto) 0.4 Absolute Eos (auto) 0 Absolute Basos (auto) 0 Absolute Nucleated RBC 0 Nucleated RBC % 0.1 INR (Anticoag Therapy) 4.95 H APTT 44.5 H D-Dimer, Quantitative 881 H Sodium 126 L Potassium 5.1 H Chloride 91 L Carbon Dioxide 27 Anion Gap 8 BUN 44 H Creatinine 1.89 H Est GFR ( Amer) 44.1 Est GFR (Non-Af Amer) 34.3 BUN/Creatinine Ratio 23.3 H Glucose 106 H Calcium 9.6 Magnesium 2.1 Total Bilirubin 1.60 H AST 31 ALT 14 Alkaline Phosphatase 89 Troponin I 0.03 Total Protein 7.0 Albumin 3.8 Globulin 3.2 Albumin/Globulin Ratio 1.2 TSH 3.21 Urine Color Urine Appearance Urine pH Ur Specific [place] Urine Protein Urine Ketones Urine Blood Urine Nitrate Urine Bilirubin Urine Urobilinogen Ur Leukocyte Esterase Urine Glucose 06/20/17 06/20/17 06/20/17 01:05 01:40 06:00 WBC RBC Hgb Hct MCV MCH MCHC RDW Plt Count MPV Neut % (Auto) Lymph % (Auto) [place] % (Auto) Eos % (Auto) Baso % (Auto) Absolute Neuts (auto) Absolute Lymphs (auto) Absolute Monos (auto) Absolute Eos (auto) Absolute Basos (auto) Absolute Nucleated RBC Nucleated RBC % INR (Anticoag Therapy) APTT D-Dimer, Quantitative Sodium 129 L Potassium 3.8 Chloride 100 L Carbon Dioxide 21 L Anion Gap 8 BUN 37 H Creatinine 1.42 H Est GFR ( Amer) 61.4 Est GFR (Non-Af Amer) 47.7 BUN/Creatinine Ratio 26.1 H Glucose 77 Calcium 7.5 L Magnesium Total Bilirubin AST ALT Alkaline Phosphatase Troponin I 0.03 0.03 Total Protein Albumin Globulin Albumin/Globulin Ratio TSH Urine Color [place] Urine Appearance Clear Urine pH 6.0 Ur Specific [place] 1.015 Urine Protein Negative Urine Ketones Negative Urine Blood Negative Urine Nitrate Negative Urine Bilirubin Negative Urine Urobilinogen Negative Ur Leukocyte Esterase Negative Urine Glucose Negative 06/20/17 06/20/17 06:00 15:00 WBC 4.1 RBC 2.74 L Hgb 9.5 L Hct 27 L MCV 99 H MCH 35 H MCHC 35 RDW 17 H Plt Count 145 L MPV 8 Neut % (Auto) Lymph % (Auto) [place] % (Auto) Eos % (Auto) Baso % (Auto) Absolute Neuts (auto) Absolute Lymphs (auto) Absolute Monos (auto) Absolute Eos (auto) Absolute Basos (auto) Absolute Nucleated RBC Nucleated RBC % INR (Anticoag Therapy) 2.87 H APTT 40.4 H D-Dimer, Quantitative Sodium Potassium Chloride Carbon Dioxide Anion Gap BUN Creatinine Est GFR ( Amer) Est GFR (Non-Af Amer) BUN/Creatinine Ratio Glucose Calcium Magnesium Total Bilirubin AST ALT Alkaline Phosphatase Troponin I Total Protein Albumin Globulin Albumin/Globulin Ratio TSH Urine Color Urine Appearance Urine pH Ur Specific [place] Urine Protein Urine Ketones Urine Blood Urine Nitrate Urine Bilirubin Urine Urobilinogen Ur Leukocyte Esterase Urine Glucose Microbiology and Other Data: Microbiology 06/20/17 01:03 Nasal Screen MRSA (PCR)(EMILY) - Final Nasal Mrsa Negative Assess/Plan/Problems-Billing Assessment: 81 year old male PMH HTN, HLD, Afib on Xarelto, recent decline (lost 10lbs and reduced ability to do ADLs) p.w with syncope. CTH with small subdural. s/p kaycentra (initial INR 4.95). No neuro deficits but some disorientation. Repeat CTH with small intraparenchymal bleed. #SDH, intraparenchymal hemorrhage - s/p kcentra. Per pharmacy, packet insert does not recommend redosing. - continue neuro checks q2 in ICU - f/u neurosurgery recs - will give vitamin K to help with other clotting factors - hold xarelto or other anticoagulants - continue keppra ppx. #Syncope in setting of recent declining deconditioning - - troponins flat at 0.03, 0.03, 0.03. ECHO with EF 30-35%, septal wall motion abnormalities. e/o of severe pHTN Try to obtain prior records and if new deficit get cardiology consult. - duplex doppler w/o e/o DVT. DDimer was elevated. Would not be able to anticoagulate if did have a PE though not hypoxic - continue telemetry - try to interogate pacer. - likely hx of CAD/angina as is on ranexa as home med and CHF as is on lasix 20mg daily. hold for now. #HTN - home lisinopril and metoprolol were not given on admission and patient currently normotensive, will add back metoprolol today #HLD - add atorvastatin 40mg back. CODE: Full - Patient Problems (1) SDH (subdural hematoma) Current Visit: Yes Status: Acute Code(s): I62.00 - NONTRAUMATIC SUBDURAL HEMORRHAGE, UNSPECIFIED SNOMED Code(s): 86502714 Comment: Both intra- and extra-axial hemorrhage. Kcentra and Vit K given. INR down to 2.40 06/21/17. CT stable. D/C tele 06/23. (2) Atrial fibrillation Current Visit: Yes Status: Acute Code(s): I48.91 - UNSPECIFIED ATRIAL FIBRILLATION SNOMED Code(s): 84829441 Comment: My judgement is that the risks of anticoagulation would outweigh the benefits. I will discuss with the family. Continue BB. (3) Fall Current Visit: Yes Status: Acute Comment: Uncertain if syncope or mechanical fall. Pt does not recall event. Pacer interrogation no events, nl function. (4) Dementia Current Visit: Yes Status: Acute Code(s): F03.90 - UNSPECIFIED DEMENTIA WITHOUT BEHAVIORAL DISTURBANCE SNOMED Code(s): 72428395 Comment: Prognosis and management discussed with son 06/21. Palliative care consult requested. Oral intake improved 06/22, 06/23. (5) CAD (coronary artery disease) Current Visit: Yes Status: Acute Code(s): I25.10 - ATHSCL HEART DISEASE OF [place] CORONARY ARTERY W/O ANG PCTRS SNOMED Code(s): 81040876 Comment: Continue statin. I will hold ASA tx due to risk of re-bleed, but re -start ranolazine. Re-start furosemide 20 mg daily 06/24 as oral intake has picked up. Status and Disposition: medicine inpatient, in ICU
[2017-06-24] MEDS: Furosemide TAB* 20 MG PO SCH (10:34)
[2017-06-24 11:09] LABS: ABS Basophils 0.1 10^3/ul (0-0.2); ABS Eosinophils 0 10^3/ul (0-0.6); ABS Lymphocytes 0.6 10^3/ul (1.0-4.8); ABS Monocytes 0.5 10^3/ul (0-0.8); ABS Neutrophils 3.5 10^3/ul (1.5-7.7); ABS Nucleated RBC 0 10^3/ul; Eosinophil % 0.5 % (0-6); Hematocrit 34 % (42-52); Hemoglobin 11.5 g/dl (14.0-18.0); Lymphocyte % 13.7 % (25-47); Mean Corpuscular HGB Conc 34 g/dl (31-36); Mean Corpuscular Hemoglobin 34 pg (27-31); Mean Corpuscular Volume 101 fL (80-94); Mean Platelet Volume 8 um3 (7.4-10.4); Nucleated Red Blood Cells % 0.1; Platelet Count 185 10^3/ul (150-450); Red Cell Distribution Width 17 % (10.5-15); White Blood Count 4.7 10^3/ul (3.5-10.8)
[2017-06-24 11:20] LABS: INR 1.48 (0.77-1.02)
[2017-06-25] MEDS: Omeprazole CAP* 20 MG PO SCH (05:11)
[2017-06-25 06:24] LABS: INR 1.54 (0.77-1.02)
[2017-06-25 06:31] LABS: ABS Basophils 0 10^3/ul (0-0.2); ABS Eosinophils 0 10^3/ul (0-0.6); ABS Lymphocytes 0.8 10^3/ul (1.0-4.8); ABS Monocytes 0.5 10^3/ul (0-0.8); ABS Neutrophils 3.4 10^3/ul (1.5-7.7); ABS Nucleated RBC 0 10^3/ul; Eosinophil % 0.7 % (0-6); Hematocrit 32 % (42-52); Hemoglobin 10.7 g/dl (14.0-18.0); Lymphocyte % 16.1 % (25-47); Mean Corpuscular HGB Conc 34 g/dl (31-36); Mean Corpuscular Hemoglobin 34 pg (27-31); Mean Corpuscular Volume 101 fL (80-94); Mean Platelet Volume 8 um3 (7.4-10.4); Nucleated Red Blood Cells % 0; Platelet Count 171 10^3/ul (150-450); Red Blood Count 3.18 10^6/ul (4.0-5.4); Red Cell Distribution Width 17 % (10.5-15); White Blood Count 4.7 10^3/ul (3.5-10.8)
[2017-06-25] MEDS: CMCS:Ranolazine (NF) 500 MG TAB PO SCH (08:50)
[2017-06-25] MEDS: Furosemide TAB* 20 MG PO SCH (08:50)
[2017-06-25] MEDS: Docusate CAP* 100 MG PO SCH (08:50)
[2017-06-25] MEDS ORDERED: Metoprolol Succinate XL TAB* 25 MG PO SCH (09:00)
--- NOTE | 2017-06-25 15:37 | PN ---
Subjective Date of Service: 06/25/17 Interval History: No c/o. His is at the bedside and said he didn't eat as well today at lunch. Objective Active Medications: Acetaminophen (Tylenol Tab*) 650 mg PO Q6H PRN PRN Reason: FEVER/PAIN Docusate Sodium (Colace Cap*) 200 mg PO BID [facility] Last Admin: 06/25/17 08:50 Dose: 200 mg Furosemide (Lasix Tab*) 20 mg PO Q48H [facility] Metoprolol Succinate (Toprol Xl Tab*) 12.5 mg PO DAILY [facility] Last Admin: 06/25/17 08:50 Dose: 12.5 mg Omeprazole (Prilosec Cap*) 20 mg PO DAILY@0600 [facility] Last Admin: 06/25/17 05:11 Dose: 20 mg Ondansetron HCl (Zofran Inj*) 4 mg IV Q6H PRN PRN Reason: NAUSEA Ranolazine (Ranexa (Nf)) 500 mg PO BID [facility] Last Admin: 06/25/17 08:50 Dose: 500 mg Vital Signs - 8 hr 06/25/17 06/25/17 06/25/17 07:59 08:00 08:38 Temperature 97.6 F Pulse Rate 67 Respiratory 18 16 Rate Blood Pressure 121/32 129/39 (mmHg) O2 Sat by Pulse 95 Oximetry 06/25/17 15:15 Temperature 97.0 F Pulse Rate 64 Respiratory 14 Rate Blood Pressure 124/56 (mmHg) O2 Sat by Pulse 98 Oximetry Oxygen Devices in Use Now: None Appearance: Alert, in a chair. In good spirits. Looks comfortable. Eyes: No Scleral Icterus Neck: NL Appearance and Movements; NL JVP, No Thyroid Enlargement, Masses Respiratory: Symmetrical Chest Expansion and Respiratory Effort, Clear to Auscultation, Clear to Percussion Cardiovascular: NL Sounds; No Murmurs; No JVD, RRR, No Edema Extremities: No Edema, No Clubbing, Cyanosis, - Skin: No Rash or Ulcers, No Nodules or Sclerosis, - Neurological: Alert and Oriented x 3, NL Sensation Result Diagrams: 06/25/17 05:51 06/20/17 06:00 Additional Lab and Data: Laboratory Tests 06/19/17 06/19/17 06/19/17 21:17 21:17 21:17 WBC 4.7 RBC 3.53 L Hgb 11.9 L Hct 35 L MCV 99 H MCH 34 H MCHC 34 RDW 17 H Plt Count 191 MPV 8 Neut % (Auto) 68.6 Lymph % (Auto) 21.5 L [place] % (Auto) 8.6 Eos % (Auto) 0.6 Baso % (Auto) 0.7 Absolute Neuts (auto) 3.2 Absolute Lymphs (auto) 1.0 Absolute Monos (auto) 0.4 Absolute Eos (auto) 0 Absolute Basos (auto) 0 Absolute Nucleated RBC 0 Nucleated RBC % 0.1 INR (Anticoag Therapy) 4.95 H APTT 44.5 H D-Dimer, Quantitative 881 H Sodium 126 L Potassium 5.1 H Chloride 91 L Carbon Dioxide 27 Anion Gap 8 BUN 44 H Creatinine 1.89 H Est GFR ( Amer) 44.1 Est GFR (Non-Af Amer) 34.3 BUN/Creatinine Ratio 23.3 H Glucose 106 H Calcium 9.6 Magnesium 2.1 Total Bilirubin 1.60 H AST 31 ALT 14 Alkaline Phosphatase 89 Troponin I 0.03 Total Protein 7.0 Albumin 3.8 Globulin 3.2 Albumin/Globulin Ratio 1.2 TSH 3.21 Urine Color Urine Appearance Urine pH Ur Specific [place] Urine Protein Urine Ketones Urine Blood Urine Nitrate Urine Bilirubin Urine Urobilinogen Ur Leukocyte Esterase Urine Glucose 06/20/17 06/20/17 06/20/17 01:05 01:40 06:00 WBC RBC Hgb Hct MCV MCH MCHC RDW Plt Count MPV Neut % (Auto) Lymph % (Auto) [place] % (Auto) Eos % (Auto) Baso % (Auto) Absolute Neuts (auto) Absolute Lymphs (auto) Absolute Monos (auto) Absolute Eos (auto) Absolute Basos (auto) Absolute Nucleated RBC Nucleated RBC % INR (Anticoag Therapy) APTT D-Dimer, Quantitative Sodium 129 L Potassium 3.8 Chloride 100 L Carbon Dioxide 21 L Anion Gap 8 BUN 37 H Creatinine 1.42 H Est GFR ( Amer) 61.4 Est GFR (Non-Af Amer) 47.7 BUN/Creatinine Ratio 26.1 H Glucose 77 Calcium 7.5 L Magnesium Total Bilirubin AST ALT Alkaline Phosphatase Troponin I 0.03 0.03 Total Protein Albumin Globulin Albumin/Globulin Ratio TSH Urine Color Meagan Urine Appearance Clear Urine pH 6.0 Ur Specific [place] 1.015 Urine Protein Negative Urine Ketones Negative Urine Blood Negative Urine Nitrate Negative Urine Bilirubin Negative Urine Urobilinogen Negative Ur Leukocyte Esterase Negative Urine Glucose Negative 06/20/17 06/20/17 06:00 15:00 WBC 4.1 RBC 2.74 L Hgb 9.5 L Hct 27 L MCV 99 H MCH 35 H MCHC 35 RDW 17 H Plt Count 145 L MPV 8 Neut % (Auto) Lymph % (Auto) [place] % (Auto) Eos % (Auto) Baso % (Auto) Absolute Neuts (auto) Absolute Lymphs (auto) Absolute Monos (auto) Absolute Eos (auto) Absolute Basos (auto) Absolute Nucleated RBC Nucleated RBC % INR (Anticoag Therapy) 2.87 H APTT 40.4 H D-Dimer, Quantitative Sodium Potassium Chloride Carbon Dioxide Anion Gap BUN Creatinine Est GFR ( Amer) Est GFR (Non-Af Amer) BUN/Creatinine Ratio Glucose Calcium Magnesium Total Bilirubin AST ALT Alkaline Phosphatase Troponin I Total Protein Albumin Globulin Albumin/Globulin Ratio TSH Urine Color Urine Appearance Urine pH Ur Specific [place] Urine Protein Urine Ketones Urine Blood Urine Nitrate Urine Bilirubin Urine Urobilinogen Ur Leukocyte Esterase Urine Glucose Microbiology and Other Data: Microbiology 06/20/17 01:03 Nasal Screen MRSA (PCR)(EMILY) - Final Nasal Mrsa Negative Assess/Plan/Problems-Billing Assessment: 81 year old male PMH HTN, HLD, Afib on Xarelto, recent decline (lost 10lbs and reduced ability to do ADLs) p.w with syncope. CTH with small subdural. s/p kaycentra (initial INR 4.95). No neuro deficits but some disorientation. Repeat CTH with small intraparenchymal bleed. #SDH, intraparenchymal hemorrhage - s/p kcentra. Per pharmacy, packet insert does not recommend redosing. - continue neuro checks q2 in ICU - f/u neurosurgery recs - will give vitamin K to help with other clotting factors - hold xarelto or other anticoagulants - continue keppra ppx. #Syncope in setting of recent declining deconditioning - - troponins flat at 0.03, 0.03, 0.03. ECHO with EF 30-35%, septal wall motion abnormalities. e/o of severe pHTN Try to obtain prior records and if new deficit get cardiology consult. - duplex doppler w/o e/o DVT. DDimer was elevated. Would not be able to anticoagulate if did have a PE though not hypoxic - continue telemetry - try to interogate pacer. - likely hx of CAD/angina as is on ranexa as home med and CHF as is on lasix 20mg daily. hold for now. #HTN - home lisinopril and metoprolol were not given on admission and patient currently normotensive, will add back metoprolol today #HLD - add atorvastatin 40mg back. CODE: Full - Patient Problems (1) SDH (subdural hematoma) Current Visit: Yes Status: Acute Code(s): I62.00 - NONTRAUMATIC SUBDURAL HEMORRHAGE, UNSPECIFIED SNOMED Code(s): 27760500 Comment: Both intra- and extra-axial hemorrhage. Kcentra and Vit K given. INR down to 2.40 06/21/17. CT stable. D/C tele 06/23. (2) Atrial fibrillation Current Visit: Yes Status: Acute Code(s): I48.91 - UNSPECIFIED ATRIAL FIBRILLATION SNOMED Code(s): 49901118 Comment: My judgement is that the risks of anticoagulation would outweigh the benefits. I will discuss with the family. Continue BB. (3) Fall Current Visit: Yes Status: Acute Comment: Uncertain if syncope or mechanical fall. Pt does not recall event. Pacer interrogation no events, nl function. (4) Dementia Current Visit: Yes Status: Acute Code(s): F03.90 - UNSPECIFIED DEMENTIA WITHOUT BEHAVIORAL DISTURBANCE SNOMED Code(s): 12674135 Comment: Prognosis and management discussed with son 06/21. Palliative care consult requested. Oral intake improved 06/22, 06/23. B12 level sent 06/25. (5) CAD (coronary artery disease) Current Visit: Yes Status: Acute Code(s): I25.10 - ATHSCL HEART DISEASE OF [place] CORONARY ARTERY W/O ANG PCTRS SNOMED Code(s): 84384167 Comment: Continue statin. I will hold ASA tx due to risk of re-bleed, but re -start ranolazine. Re-start furosemide 20 mg daily 06/24 as oral intake has picked up. Furosemide changec to q 48 hr due to low oral intake, BMP sent 06/25. Status and Disposition: medicine inpatient, in ICU
--- NOTE | 2017-06-25 15:58 | DCNOTE ---
Subjective Date of Service: 06/25/17 Interval History: Patient status changed to swing bed. Objective Active Medications: Acetaminophen (Tylenol Tab*) 650 mg PO Q6H PRN PRN Reason: FEVER/PAIN Docusate Sodium (Colace Cap*) 200 mg PO BID [facility] Last Admin: 06/25/17 08:50 Dose: 200 mg Furosemide (Lasix Tab*) 20 mg PO Q48H [facility] Metoprolol Succinate (Toprol Xl Tab*) 12.5 mg PO DAILY [facility] Last Admin: 06/25/17 08:50 Dose: 12.5 mg Ondansetron HCl (Zofran Inj*) 4 mg IV Q6H PRN PRN Reason: NAUSEA Ranolazine (Ranexa (Nf)) 500 mg PO BID [facility] Last Admin: 06/25/17 08:50 Dose: 500 mg Vital Signs - 8 hr 06/25/17 06/25/17 06/25/17 07:59 08:00 08:38 Temperature 97.6 F Pulse Rate 67 Respiratory 18 16 Rate Blood Pressure 121/32 129/39 (mmHg) O2 Sat by Pulse 95 Oximetry 06/25/17 15:15 Temperature 97.0 F Pulse Rate 64 Respiratory 14 Rate Blood Pressure 124/56 (mmHg) O2 Sat by Pulse 98 Oximetry Oxygen Devices in Use Now: None Result Diagrams: 06/25/17 05:51 06/20/17 06:00 Additional Lab and Data: Laboratory Tests 06/19/17 06/19/17 06/19/17 21:17 21:17 21:17 WBC 4.7 RBC 3.53 L Hgb 11.9 L Hct 35 L MCV 99 H MCH 34 H MCHC 34 RDW 17 H Plt Count 191 MPV 8 Neut % (Auto) 68.6 Lymph % (Auto) 21.5 L [place] % (Auto) 8.6 Eos % (Auto) 0.6 Baso % (Auto) 0.7 Absolute Neuts (auto) 3.2 Absolute Lymphs (auto) 1.0 Absolute Monos (auto) 0.4 Absolute Eos (auto) 0 Absolute Basos (auto) 0 Absolute Nucleated RBC 0 Nucleated RBC % 0.1 INR (Anticoag Therapy) 4.95 H APTT 44.5 H D-Dimer, Quantitative 881 H Sodium 126 L Potassium 5.1 H Chloride 91 L Carbon Dioxide 27 Anion Gap 8 BUN 44 H Creatinine 1.89 H Est GFR ( Amer) 44.1 Est GFR (Non-Af Amer) 34.3 BUN/Creatinine Ratio 23.3 H Glucose 106 H Calcium 9.6 Magnesium 2.1 Total Bilirubin 1.60 H AST 31 ALT 14 Alkaline Phosphatase 89 Troponin I 0.03 Total Protein 7.0 Albumin 3.8 Globulin 3.2 Albumin/Globulin Ratio 1.2 TSH 3.21 Urine Color Urine Appearance Urine pH Ur Specific [place] Urine Protein Urine Ketones Urine Blood Urine Nitrate Urine Bilirubin Urine Urobilinogen Ur Leukocyte Esterase Urine Glucose 06/20/17 06/20/17 06/20/17 01:05 01:40 06:00 WBC RBC Hgb Hct MCV MCH MCHC RDW Plt Count MPV Neut % (Auto) Lymph % (Auto) [place] % (Auto) Eos % (Auto) Baso % (Auto) Absolute Neuts (auto) Absolute Lymphs (auto) Absolute Monos (auto) Absolute Eos (auto) Absolute Basos (auto) Absolute Nucleated RBC Nucleated RBC % INR (Anticoag Therapy) APTT D-Dimer, Quantitative Sodium 129 L Potassium 3.8 Chloride 100 L Carbon Dioxide 21 L Anion Gap 8 BUN 37 H Creatinine 1.42 H Est GFR ( Amer) 61.4 Est GFR (Non-Af Amer) 47.7 BUN/Creatinine Ratio 26.1 H Glucose 77 Calcium 7.5 L Magnesium Total Bilirubin AST ALT Alkaline Phosphatase Troponin I 0.03 0.03 Total Protein Albumin Globulin Albumin/Globulin Ratio TSH Urine Color [place] Urine Appearance Clear Urine pH 6.0 Ur Specific [place] 1.015 Urine Protein Negative Urine Ketones Negative Urine Blood Negative Urine Nitrate Negative Urine Bilirubin Negative Urine Urobilinogen Negative Ur Leukocyte Esterase Negative Urine Glucose Negative 06/20/17 06/20/17 06:00 15:00 WBC 4.1 RBC 2.74 L Hgb 9.5 L Hct 27 L MCV 99 H MCH 35 H MCHC 35 RDW 17 H Plt Count 145 L MPV 8 Neut % (Auto) Lymph % (Auto) [place] % (Auto) Eos % (Auto) Baso % (Auto) Absolute Neuts (auto) Absolute Lymphs (auto) Absolute Monos (auto) Absolute Eos (auto) Absolute Basos (auto) Absolute Nucleated RBC Nucleated RBC % INR (Anticoag Therapy) 2.87 H APTT 40.4 H D-Dimer, Quantitative Sodium Potassium Chloride Carbon Dioxide Anion Gap BUN Creatinine Est GFR ( Amer) Est GFR (Non-Af Amer) BUN/Creatinine Ratio Glucose Calcium Magnesium Total Bilirubin AST ALT Alkaline Phosphatase Troponin I Total Protein Albumin Globulin Albumin/Globulin Ratio TSH Urine Color Urine Appearance Urine pH Ur Specific [place] Urine Protein Urine Ketones Urine Blood Urine Nitrate Urine Bilirubin Urine Urobilinogen Ur Leukocyte Esterase Urine Glucose Microbiology and Other Data: Microbiology 06/20/17 01:03 Nasal Screen MRSA (PCR)(EMILY) - Final Nasal Mrsa Negative Assess/Plan/Problems-Billing Assessment: 81 year old male PMH HTN, HLD, Afib on Xarelto, recent decline (lost 10lbs and reduced ability to do ADLs) p.w with syncope. CTH with small subdural. s/p kaycentra (initial INR 4.95). No neuro deficits but some disorientation. Repeat CTH with small intraparenchymal bleed. #SDH, intraparenchymal hemorrhage - s/p kcentra. Per pharmacy, packet insert does not recommend redosing. - continue neuro checks q2 in ICU - f/u neurosurgery recs - will give vitamin K to help with other clotting factors - hold xarelto or other anticoagulants - continue keppra ppx. #Syncope in setting of recent declining deconditioning - - troponins flat at 0.03, 0.03, 0.03. ECHO with EF 30-35%, septal wall motion abnormalities. e/o of severe pHTN Try to obtain prior records and if new deficit get cardiology consult. - duplex doppler w/o e/o DVT. DDimer was elevated. Would not be able to anticoagulate if did have a PE though not hypoxic - continue telemetry - try to interogate pacer. - likely hx of CAD/angina as is on ranexa as home med and CHF as is on lasix 20mg daily. hold for now. #HTN - home lisinopril and metoprolol were not given on admission and patient currently normotensive, will add back metoprolol today #HLD - add atorvastatin 40mg back. CODE: Full - Patient Problems (1) SDH (subdural hematoma) Current Visit: Yes Status: Acute Code(s): I62.00 - NONTRAUMATIC SUBDURAL HEMORRHAGE, UNSPECIFIED SNOMED Code(s): 90645184 Comment: Both intra- and extra-axial hemorrhage. Kcentra and Vit K given. INR down to 2.40 06/21/17. CT stable. D/C tele 06/23. (2) Atrial fibrillation Current Visit: Yes Status: Acute Code(s): I48.91 - UNSPECIFIED ATRIAL FIBRILLATION SNOMED Code(s): 81553228 Comment: My judgement is that the risks of anticoagulation would outweigh the benefits. I will discuss with the family. Continue BB. (3) Fall Current Visit: Yes Status: Acute Comment: Uncertain if syncope or mechanical fall. Pt does not recall event. Pacer interrogation no events, nl function. (4) Dementia Current Visit: Yes Status: Acute Code(s): F03.90 - UNSPECIFIED DEMENTIA WITHOUT BEHAVIORAL DISTURBANCE SNOMED Code(s): 37936098 Comment: Prognosis and management discussed with son 06/21. Palliative care consult requested. Oral intake improved 06/22, 06/23. B12 level sent 06/25. (5) CAD (coronary artery disease) Current Visit: Yes Status: Acute Code(s): I25.10 - ATHSCL HEART DISEASE OF [place] CORONARY ARTERY W/O ANG PCTRS SNOMED Code(s): 35024944 Comment: Continue statin. I will hold ASA tx due to risk of re-bleed, but re -start ranolazine. Re-start furosemide 20 mg daily 06/24 as oral intake has picked up. Furosemide changec to q 48 hr due to low oral intake, BMP sent 06/25. (6) Cardiomyopathy Current Visit: Yes Status: Acute Code(s): I42.9 - CARDIOMYOPATHY, UNSPECIFIED SNOMED Code(s): 67938583 Comment: LVEF 35-40% 06/20/17 on echo. Furosemide as above. Status and Disposition: Transfer to swing bed status.
[2017-06-25 16:01] LABS: EGFR Non-African American 49.7 (>60)
--- NOTE | 2017-06-25 16:07 | CONSULT ---
Palliative / Hospice Consult Ordering Provider: Elia Mosquera - Subjective Code Status: DNR Advance Directives Location: In Chart MOLST Part A Completed: Yes - prior form unsigned by MD Date: 06/25/17 MOLST Part E Completed:: Yes - prior form unsigned by MD Date: 06/25/17 - History or Present Illness History or Present Illness: This 81 year old man with EF 35-40%, severe septal hypokinesis, moderate-severe , moderate MR and large pleural effusion had an unwitnessed fall at home resulting in SAH and ICH. His INR on anticoagulation for AF was 4.95 on admission here. He had a previous hospitalization at [facility] in April 2017 and for CHF exacerbation and since that time has had failing appetite and has lost about 10 lbs. His previous weight was 160 lb., per his , and he is now 138 lb., which is BMI of 18.7. Albumin in 3.8, however. He has been improving in his functional capacity here and isnow planning to move to [facility] in [place], where he has two physician children. Lab Values: Abnormal Lab Results 06/25/17 06/25/17 06/25/17 05:51 05:51 15:40 WBC 4.7 RBC 3.18 L Hgb 10.7 L Hct 32 L MCV 101 H MCH 34 H MCHC 34 RDW 17 H Plt Count 171 MPV 8 Neut % (Auto) 72.3 Lymph % (Auto) 16.1 L [place] % (Auto) 10.4 H Eos % (Auto) 0.7 Baso % (Auto) 0.5 Absolute Neuts (auto) 3.4 Absolute Lymphs (auto) 0.8 L Absolute Monos (auto) 0.5 Absolute Eos (auto) 0 Absolute Basos (auto) 0 Absolute Nucleated RBC 0 Nucleated RBC % 0 INR (Anticoag Therapy) 1.54 H Sodium 132 L Chloride 99 L Carbon Dioxide 26 BUN 49 H Creatinine 1.37 H Est GFR ( Amer) 64.0 Est GFR (Non-Af Amer) 49.7 BUN/Creatinine Ratio 35.8 H Glucose 120 H Calcium 8.9 Laboratory Last Values WBC 4.7 10^3/ul (3.5-10.8) 06/25/17 05:51 RBC 3.18 10^6/ul (4.0-5.4) L 06/25/17 05:51 Hgb 10.7 g/dl (14.0-18.0) L 06/25/17 05:51 Hct 32 % (42-52) L 06/25/17 05:51 MCV 101 fL (80-94) H 06/25/17 05:51 MCH 34 pg (27-31) H 06/25/17 05:51 MCHC 34 g/dl (31-36) 06/25/17 05:51 RDW 17 % (10.5-15) H 06/25/17 05:51 Plt Count 171 10^3/ul (150-450) 06/25/17 05:51 MPV 8 um3 (7.4-10.4) 06/25/17 05:51 Neut % (Auto) 72.3 % (38-83) 06/25/17 05:51 Lymph % (Auto) 16.1 % (25-47) L 06/25/17 05:51 Coryell % (Auto) 10.4 % (1-9) H 06/25/17 05:51 Eos % (Auto) 0.7 % (0-6) 06/25/17 05:51 Baso % (Auto) 0.5 % (0-2) 06/25/17 05:51 Absolute Neuts (auto) 3.4 10^3/ul (1.5-7.7) 06/25/17 05:51 Absolute Lymphs (auto) 0.8 10^3/ul (1.0-4.8) L 06/25/17 05:51 Absolute Monos (auto) 0.5 10^3/ul (0-0.8) 06/25/17 05:51 Absolute Eos (auto) 0 10^3/ul (0-0.6) 06/25/17 05:51 Absolute Basos (auto) 0 10^3/ul (0-0.2) 06/25/17 05:51 Absolute Nucleated RBC 0 10^3/ul 06/25/17 05:51 Nucleated RBC % 0 06/25/17 05:51 INR (Anticoag Therapy) 1.54 (0.77-1.02) H 06/25/17 05:51 APTT 40.4 seconds (26.0-36.3) H 06/20/17 15:00 D-Dimer, Quantitative 881 ng/mL (Less Than 230) H 06/19/17 21:17 Sodium 132 mmol/L (133-145) L 06/25/17 15:40 Potassium 3.8 mmol/L (3.5-5.0) 06/20/17 06:00 Chloride 99 mmol/L (101-111) L 06/25/17 15:40 Carbon Dioxide 26 mmol/L (22-32) 06/25/17 15:40 Anion Gap 8 mmol/L (2-11) 06/20/17 06:00 BUN 49 mg/dL (6-24) H 06/25/17 15:40 Creatinine 1.37 mg/dL (0.67-1.17) H 06/25/17 15:40 Est GFR ( Amer) 64.0 (>60) 06/25/17 15:40 Est GFR (Non-Af Amer) 49.7 (>60) 06/25/17 15:40 BUN/Creatinine Ratio 35.8 (8-20) H 06/25/17 15:40 Glucose 120 mg/dL (70-100) H 06/25/17 15:40 Calcium 8.9 mg/dL (8.6-10.3) 06/25/17 15:40 Magnesium 2.1 mg/dL (1.9-2.7) 06/19/17 21:17 Total Bilirubin 1.60 mg/dL (0.2-1.0) H 06/19/17 21:17 AST 31 U/L (13-39) 06/19/17 21:17 ALT 14 U/L (7-52) 06/19/17 21:17 Alkaline Phosphatase 89 U/L (34-104) 06/19/17 21:17 Troponin I 0.03 ng/mL (<0.04) 06/20/17 06:00 Total Protein 7.0 g/dL (6.4-8.9) 06/19/17 21:17 Albumin 3.8 g/dL (3.2-5.2) 06/19/17 21:17 Globulin 3.2 g/dL (2-4) 06/19/17 21:17 Albumin/Globulin Ratio 1.2 (1-3) 06/19/17 21:17 TSH 3.21 mcIU/mL (0.34-5.60) 06/19/17 21:17 Urine Color Meagan 06/20/17 01:40 Urine Appearance Clear 06/20/17 01:40 Urine pH 6.0 (5-9) 06/20/17 01:40 Ur Specific [place] 1.015 (1.010-1.030) 06/20/17 01:40 Urine Protein Negative (Negative) 06/20/17 01:40 Urine Ketones Negative (Negative) 06/20/17 01:40 Urine Blood Negative (Negative) 06/20/17 01:40 Urine Nitrate Negative (Negative) 06/20/17 01:40 Urine Bilirubin Negative (Negative) 06/20/17 01:40 Urine Urobilinogen Negative (Negative) 06/20/17 01:40 Ur Leukocyte Esterase Negative (Negative) 06/20/17 01:40 Urine Glucose Negative (Negative) 06/20/17 01:40 - Objective Active Medications: Acetaminophen (Tylenol Tab*) 650 mg PO Q6H PRN PRN Reason: FEVER/PAIN Docusate Sodium (Colace Cap*) 200 mg PO BID [facility] Last Admin: 06/25/17 08:50 Dose: 200 mg Furosemide (Lasix Tab*) 20 mg PO Q48H [facility] Metoprolol Succinate (Toprol Xl Tab*) 12.5 mg PO DAILY [facility] Last Admin: 06/25/17 08:50 Dose: 12.5 mg Ondansetron HCl (Zofran Inj*) 4 mg IV Q6H PRN PRN Reason: NAUSEA Ranolazine (Ranexa (Nf)) 500 mg PO BID [facility] Last Admin: 06/25/17 08:50 Dose: 500 mg Vital Signs: Vital Signs: Temp Pulse Resp BP Pulse Ox 97.0 F 64 14 124/56 98 06/25/17 15:15 06/25/17 15:15 06/25/17 15:15 06/25/17 15:15 06/25/17 15:15 Patient Weight: Weight 138 lb 0.15 oz Intake and Output: Intake & Output 06/23/17 06/24/17 06/25/17 06/26/17 06:59 06:59 06:59 06:59 Intake Total 2193 1130 237 420 Output Total 75 200 100 200 Balance 2118 930 137 220 Intake: IV Fluids 1393 NS (0.9%) 1393 Oral 800 1130 237 420 Output: Urine 75 200 100 200 Other: Estimated Void Small Medium Medium # Bowel Movements 0 0 1 Estimated Stool Amount Small Small # Voids 1 1 1 ADLs: Meal Record Start: 06/20/17 01: 11 Freq: 09,13,18 Status: Complete Protocol: Created 06/20/17 01:11 System (Rec: 06/20/17 01:11 System ICU-M05) Document 06/20/17 09:00 [id number] (Rec: 06/20/17 09:56 [id number] ICU-C15) Document 06/20/17 13:00 [id number] (Rec: 06/20/17 13:27 [id number] ICU-C15) Document 06/20/17 18:00 [id number] (Rec: 06/20/17 18:52 [id number] ICU-C12) Document 06/21/17 09:45 [id number] (Rec: 06/21/17 09:54 [id number] ICU-C10) ADLs: Meal Record Start: 06/21/17 21: 25 Freq: Status: Active Protocol: Document 06/21/17 21:25 [id number] (Rec: 06/21/17 21:25 [id number] TELE-C05) Created 06/21/17 21:25 [id number] (Rec: 06/21/17 21:25 [id number] TELE-C05) Document 06/22/17 09:41 [id number] (Rec: 06/22/17 09:42 [id number] TELE-M03) Document 06/22/17 13:15 [id number] (Rec: 06/22/17 13:16 [id number] TELE-C15) Document 06/22/17 17:41 [id number] (Rec: 06/22/17 17:41 [id number] TELE-C01) Document 06/23/17 12:00 [id number] (Rec: 06/23/17 12:18 [id number] TELE-C01) Document 06/23/17 21:52 [id number] (Rec: 06/23/17 21:52 [id number] TELE-C07) Document 06/25/17 12:30 [id number] (Rec: 06/25/17 12:31 QUQ0157 TELE-C01) Document 06/25/17 14:09 [id number] (Rec: 06/25/17 14:10 [id number] TELE-C01) Document 06/25/17 14:10 [id number] (Rec: 06/25/17 14:11 OSP6525 TELE-C01) Intake and Output Start: 06/20/17 01: 11 Freq: 06,14,22 Status: Complete Protocol: Created 06/20/17 01:11 System (Rec: 06/20/17 01:11 System ICU-M05) Document 06/20/17 06:00 [id number] (Rec: 06/20/17 06:10 [id number] ICU-C15) Document 06/20/17 14:00 [id number] (Rec: 06/20/17 15:29 [id number] ICU-M05) Document 06/20/17 19:29 [id number] (Rec: 06/20/17 19:30 [id number] ICU-C12) Document 06/21/17 04:44 [id number] (Rec: 06/21/17 04:44 [id number] ICU-C16) Intake and Output Start: 06/21/17 15: 24 Freq: Status: Active Protocol: Document 06/21/17 15:24 [id number] (Rec: 06/21/17 15:24 [id number] TELE-C09) Created 06/21/17 15:24 [id number] (Rec: 06/21/17 15:24 SQS0180 TELE-C09) Document 06/21/17 22:57 [id number] (Rec: 06/21/17 22:58 [id number] TELE-C06) Document 06/22/17 02:19 [id number] (Rec: 06/22/17 02:20 [id number] [facility] [place]) Document 06/22/17 22:27 [id number] (Rec: 06/22/17 22:29 [id number] TELE-C09) Document 06/23/17 14:22 [id number] (Rec: 06/23/17 14:23 [id number] TELE-C09) Document 06/24/17 22:37 [id number] (Rec: 06/24/17 22:38 [id number] TELE-C09) Document 06/25/17 05:14 [id number] (Rec: 06/25/17 05:14 [id number] TELE-M04) General Impression: Confused, confabulating man who is oriented actually only to self. Head: Symmetrical Eyes: No Scleral Icterus Ears/Nose/Mouth/Throat: Clear Oropharnyx, Mucous Membranes Moist Neck: NL Appearance and Movements; NL JVP, No Thyroid Enlargement, Masses Cardiovascular: NL Sounds; No Murmurs; No JVD, No Edema Respiratory: Symmetrical Chest Expansion and Respiratory Effort Abdominal: NL Sounds; No Tenderness; No Distention, No Hepatosplenomegaly Extremities: No Edema, No Clubbing, Cyanosis, - Neurological: Alert and Oriented x 3, NL Sensation, - - O x 1, confused - Assessment Assessment: This patient has significant cardiac disease, with EF 35-40% and valvular disease that makes his effective cardiac output much less, and he is also failing in his weight and functional status. He is confused, and he has been losing weight fairly rapidly. His wants to pursue hospitalizations and interventions as much as possible, however, and he is slated to participate in short term rehab in [place] where his children live. He should not be on anticoagulants, as his riskof falls and IC bleeds outweighs his risk of CVA due to AF. I spoke to his daughter Delores Steen, [phone], a physician in [place] who works at [employer], and she is in agreement with her parents' plan to pursue STR and then see how her father does after that. No one in the family is willing to consider hospice services at this time, although Mr. Ruelas would probably qualify for hospice on the basis of his cardiac disease , especially if his weight continues to drop. - Plan Consult Plan (MU): Palliative - Time On Unit Date of Evaluation: 06/25/17 Hospice Consult Time in: 15:15 Hospice Consult Time Out: 16:30 Hospice Consult Time Total: 75
[2017-06-25 22:25] VITALS: BP 132/37
[2017-06-27] MEDS ORDERED: Furosemide TAB* 20 MG PO SCH (09:00)
== END 2017-06-25 17:18 | disposition swing bed (61) | DRG 86 ==
LOC: ED 20:04 → ICU 23:28 → MEDTELE 06-21 07:55
PROVIDERS: ADMIT Hospitalist; ATTEND Internal Medicine
PROC: 30283B1 Transfusion of Nonautologous 4-Factor Prothrombin Complex Concentrate into Vein, Percutaneous Approach (ICD-10-PCS; principal; 2017-06-19)
PROC: 0HQ0XZZ Repair Scalp Skin, External Approach (ICD-10-PCS; 2017-06-19)
DX: S06.6X1A Traumatic subarachnoid hemorrhage with loss of consciousness of 30 minutes or less, initial encounter (principal); I42.9 Cardiomyopathy, unspecified; S06.5X1A Traumatic subdural hemorrhage with loss of consciousness of 30 minutes or less, initial encounter; I27.20 Pulmonary hypertension, unspecified; I48.91 Unspecified atrial fibrillation; I50.9 Heart failure, unspecified; I11.0 Hypertensive heart disease with heart failure; F03.90 Unspecified dementia, unspecified severity, without behavioral disturbance, psychotic disturbance, mood disturbance, and anxiety; E78.5 Hyperlipidemia, unspecified; R55 Syncope and collapse; R40.2412 Glasgow coma scale score 13-15, at arrival to emergency department; S01.01XA Laceration without foreign body of scalp, initial encounter; W19.XXXA Unspecified fall, initial encounter; R41.0 Disorientation, unspecified; I25.10 Atherosclerotic heart disease of native coronary artery without angina pectoris; Z66 Do not resuscitate; I34.0 Nonrheumatic mitral (valve) insufficiency; I35.0 Nonrheumatic aortic (valve) stenosis; Y92.000 Kitchen of unspecified non-institutional (private) residence as the place of occurrence of the external cause; Z95.0 Presence of cardiac pacemaker; Z88.0 Allergy status to penicillin; Z98.42 Cataract extraction status, left eye; Z98.41 Cataract extraction status, right eye; Z82.49 Family history of ischemic heart disease and other diseases of the circulatory system; Z72.89 Other problems related to lifestyle
CPT/HCPCS: 36415; 70450; 71045; 72125; 80048; 80053; 81003; 82607; 83735; 84443; 84484; 85025; 85027; 85379; 85610; 85730; 87040; 87641; 90715; 93005; 93306; 93970; A9270-GY; C9132

== ENCOUNTER 2017-06-25 16:00 | Inpatient (IN) | payer MEDICARE, BC ==
[2017-06-25] MEDS ORDERED: Acetaminophen TAB* 325 MG PO PRN (18:09)
--- NOTE | 2017-06-25 19:50 | HP ---
ADMISSION HISTORY AND PHYSICAL: DATE OF ADMISSION: 06/25/17 HISTORY OF PRESENT ILLNESS: This 81-year-old man presented to the emergency room on 06/19/17 in the evening. He had been home in the kitchen with his , she was not facing him and heard a sound, he was unresponsive on the floor for about 10 to 15 minutes. She called EMS, they arrived at about the time he was beginning to wake up. The patient cannot recall these events. He was found to have a subarachnoid hematoma as he was on rivaroxaban, he was given 3000 units of Kcentra in the emergency room. He was also given a gram of levetiracetam. He was monitored in the intensive care unit. He had 4 CT scans during his hospital stay, the last one being on 06/22/17. This one showed all changes were unchanged from the previous examination. He had 3 separate findings. He had left frontal lobe subarachnoid interstitial parenchymal hemorrhage. He had hemorrhage between the posterior aspect of the lateral ventricles and he had intraventricular hemorrhage. Clinically, he did fairly well. I am not sure what his baseline status actually is. The main concern with his oral intake, which was variable, but tend to be low. His family did not want him to have intravenous fluids. A lot of his medications were discontinued. He is basically on comfort medications. This will include ranolazine, which might keep him from having chest pain as well as metoprolol. I restarted him on furosemide a few days before discharge as his oral intake seemed to fern picker; however, it declined again. I am going to try him on furosemide 20 mg every 48 hours. At the time of this dictation, B12 level and basic metabolic profile are pending. ADMISSION DIAGNOSES: 1. Subarachnoid intraparenchymal and intraventricular hemorrhage. 2. Atrial fibrillation. 3. Dementia. 4. Coronary artery disease. MEDICATIONS: Unchanged status to swing bed: 1. Acetaminophen 650 mg every 6 hours p.r.n. 2. Docusate 200 mg b.i.d. 3. Furosemide 20 mg every 48 hours. 4. Metoprolol succinate 12.5 mg daily. 6. Ranolazine 500 mg b.i.d. [id number]/[facility] #: [id number] MTDD
[2017-06-25] MEDS: CMCS: Ranolazine (NF) 500 MG TAB PO SCH (23:29)
[2017-06-26] MEDS: Omeprazole CAP* 20 MG PO SCH (05:01)
[2017-06-26] MEDS: Docusate CAP* 100 MG PO PRN (10:02)
[2017-06-26] MEDS: CMCS: Ranolazine (NF) 500 MG TAB PO SCH ×2 (10:02→22:43)
[2017-06-26] MEDS: Metoprolol Succinate XL TAB* 25 MG PO SCH (10:02)
[2017-06-27] MEDS: Omeprazole CAP* 20 MG PO SCH (05:00)
[2017-06-27] MEDS: CMCS: Ranolazine (NF) 500 MG TAB PO SCH ×2 (08:18→20:32)
[2017-06-27] MEDS: Docusate CAP* 100 MG PO PRN (08:18)
[2017-06-27] MEDS: Metoprolol Succinate XL TAB* 25 MG PO SCH (08:19)
[2017-06-27] MEDS ORDERED: Furosemide TAB* 20 MG PO SCH (09:00)
[2017-06-28] MEDS: Omeprazole CAP* 20 MG PO SCH (06:14)
[2017-06-28] MEDS: CMCS: Ranolazine (NF) 500 MG TAB PO SCH (08:31)
[2017-06-28] MEDS: Metoprolol Succinate XL TAB* 25 MG PO SCH (08:31)
[2017-06-28 08:40] VITALS: BP 140/41
--- NOTE | 2017-06-28 09:29 | DS ---
CC: EDU Mederos * DISCHARGE SUMMARY: DATE OF ADMISSION: 06/25/17 DATE OF DISCHARGE: 06/28/17 PRIMARY CARE PROVIDER: EDU Mederos. MY ATTENDING WHILE IN THE HOSPITAL: Dr. Yara Valladares * (DICTATED BY STACY HERMAN) CONSULTING PROVIDERS: STACY Arteaga of Neurosurgery, Stacia Gates of Palliative Medicine. PRIMARY DISCHARGE DIAGNOSES: 1. Fall. 2. Dementia. 3. Subarachnoid hemorrhage. 4. Intraparenchymal hemorrhage. 5. Intraventricular hemorrhage. SECONDARY DISCHARGE DIAGNOSES: 1. Atrial fibrillation status post pacemaker placement. 2. Hypertension. 3. Hyperlipidemia. STUDIES DONE WHILE IN THE HOSPITAL: None. MEDICATIONS: 1. Tylenol 650 mg p.o. q. 6 hours as needed for pain. 2. Docusate 200 mg p.o. b.i.d. as needed for constipation. 3. Furosemide 20 mg p.o. q. 4-8 hours as scheduled. 4. Metoprolol 12.5 mg p.o. daily. 5. Metoprolol succinate 12.5 mg p.o. daily. 6. Omeprazole 20 mg p.o. daily. 7. Ranolazine 500 mg p.o. b.i.d. 8. Clotrimazole vaughn 10 mg dissolved in mouth. New medication at discharge: None. Medications discontinued at discharge: None. HOSPITAL COURSE: This is a brief summary of the patient's presentation. For more details, please see the history and physical from Dr. Young Hendricks on 06/19/17 and history and physical from Dr. Young Mosquera on 06/25/17. In brief, the patient is an 82-year-old male with a past medical history significant for the above who presented to the emergency department on 06/19/17 with a fall and an unresponsive episode lasting 10 to 15 minutes. The patient had no recollection of the events and no other complaints except for headache, patient had a head laceration. The patient was found to have a small frontal subarachnoid hemorrhage. The patient was on rivaroxaban at that time and was given Kcentra and Keppra. His laceration was sutured and dressed. Neurosurgery was consulted. Neurosurgery did not see any need for intervention, recommended to repeat a CT on 06/20/17, which showed a new intraparenchymal hemorrhage on anterior left frontal lobe and an increased hemorrhage and unchanged subarachnoid hemorrhage and increased hemorrhage adjacent to posterior bilateral ventricles. Repeat CT from 06/20/17 showed no change from earlier that day with no significant mass effect, repeat from 06/22/17 showed no change. The patient had no new neurological deficits over this time. The patient had echo, which showed an EF of 30 to 35, severe pulmonary hypertension , no signs of DVT. The patient had no other complaints. Palliative Care consult was entered. The patient had no other complaints on 06/21/17 or . Neurosurgery signed off on 06/22/17 because of no new neurological deficits or complaints. Consultation with Dr. Stacia Gates with the family and the patient on 06/25/17 showed that the patient had failure to thrive, but the family wanted to continue with rehab and not go for hospice. His wanted to pursue further hospitalizations and interventions as possible and instead they wanted to go to rehab in [place]. The patient was changed was to swing status on 06/25/17. The patient had no complaints over the course of his status on swing. The patient was accepted to [facility] in [place] and will be discharged 06/28/17. PHYSICAL EXAM ON DAY OF DISCHARGE: General: The patient is an 81-year-old male who appears stated age, has a large bandage on his forehead and elbow and is in no acute distress. Vital Signs: At the time of discharge; temperature 98.2, pulse rate 67, respiratory rate 16, oxygen saturation 97% on room air, blood pressure 139/84. HEENT: Head normocephalic. There is ecchymosis underling dressing on the left forehead, which overlies a wound with sutures. Sclerae anicteric. No conjunctival injection. Nasal mucosa moist. Oral mucosa moist. There is evidence of thrush in the posterior pharynx. No pharyngeal erythema. Neck: Supple, nontender. No lymphadenopathy. No carotid bruit auscultated. Cardiac: Regular rate and rhythm. There is a grade 3/6 holosystolic murmur heard best at the apex. No palpable thrill. S1, S2 present. No other adventitious lung sounds. Pulses 2+ bilateral radial dorsalis pedis and posterior tibialis areas, 1+ edema in bilateral lower extremities equally. Respiratory: Clear to auscultation bilaterally. No wheezes, rales, or rhonchi, good air exchange bilaterally. Abdomen: Soft, nontender, nondistended. Bowel sounds present, normoactive in all 4 quadrants. No hepatosplenomegaly. Skin: Clean and dry. There is a wound covered by a gauze dressing on the patient's forehead and elbow. The patient's forehead dressing is sutured closed. No other rash. Neuro: Cranial nerves II through XII grossly intact. The patient is alert and oriented only to himself. The patient is diffusely and symmetrically weak with 4-/5 strength. Reflexes 1+ in brachial, patellar, and Achilles areas. Sensation normal. Pin sensation to light tough intact in bilateral upper and lower extremities. Babinski's downgoing bilaterally. Psychiatric: Pleasant and cooperative. DISCHARGE PLAN: The patient will be discharged to [facility] in [place] for subacute rehab with the plan of returning home to the family. The patient will continue his medications as above, which include mainly comfort medications to avoid angina and dyspnea that will be focused on long-term preventive care. As per family's wishes, patient will not be anticoagulated for the atrial fibrillation due to the risk of anticoagulation outweighing the benefits of stroke prevention. The patient will be on metoprolol and ranolazine to avoid angina. The patient has a dressing on his forehead. It should be redressed as it is with a dry gauze covered by a Tegaderm as should his left elbow dressing. The patient should have a regular unrestricted diet, engage in activities as tolerated with the goal of returning home with his family after subacute rehab. TIME SPENT: Approximately 60 minutes was spent on discharge, 30 of which spent [id number] with the patient obtaining history and physical and discussing the treatment plan. STACY HERMAN [id number]/[facility] #: [id number] MARIANA
== END 2017-06-28 09:20 | DRG 87 ==
LOC: MEDTELE 17:17 → MED 06-27 19:53
PROVIDERS: ADMIT Hospitalist; ATTEND Internal Medicine
DX: S06.6X1A Traumatic subarachnoid hemorrhage with loss of consciousness of 30 minutes or less, initial encounter (principal); S06.361A Traumatic hemorrhage of cerebrum, unspecified, with loss of consciousness of 30 minutes or less, initial encounter; I27.20 Pulmonary hypertension, unspecified; I48.91 Unspecified atrial fibrillation; W18.30XA Fall on same level, unspecified, initial encounter; Y92.9 Unspecified place or not applicable; E78.5 Hyperlipidemia, unspecified; F03.90 Unspecified dementia, unspecified severity, without behavioral disturbance, psychotic disturbance, mood disturbance, and anxiety; I25.10 Atherosclerotic heart disease of native coronary artery without angina pectoris; I11.9 Hypertensive heart disease without heart failure; Z79.1 Long term (current) use of non-steroidal anti-inflammatories (NSAID); Z79.899 Other long term (current) drug therapy; Z95.0 Presence of cardiac pacemaker
CPT/HCPCS: A9270-GY